=== PATIENT | male | born 1960 | race Caucasian/White ===

== ENCOUNTER 2018-05-28 06:24 | Inpatient (IN) ==
[2018-05-28] MEDS ORDERED: Aspirin 325 MG Tablet PO ONE (07:12)
[2018-05-28 07:32] LABS: Baso # (Auto) 0.3 th/mm3 (0.0-0.2); Baso % (Auto) 3.4 % (0.0-2.0); Eos # (Auto) 0.1 th/mm3 (0.0-0.4); Eos % (Auto) 1.9 % (0.0-4.0); Hematocrit 39.2 % (39.0-51.0); Hemoglobin 13.2 gm/dL (13.0-17.0); Lymph # (Auto) 1.6 th/mm3 (1.0-4.8); Lymph % (Auto) 20.9 % (9.0-44.0); Mean Corpuscular HGB Conc 33.8 % (32.0-36.0); Mean Corpuscular Hemoglobin 29.2 pg (27.0-34.0); Mean Corpuscular Volume 86.4 fL (80.0-100.0); Mean Platelet Volume 11.4 fL (7.0-11.0); Mono # (Auto) 0.9 th/mm3 (0.0-0.9); Mono % (Auto) 11.7 % (0.0-8.0); Neut # (Auto) 4.7 th/mm3 (1.8-7.7); Neut % (Auto) 62.1 % (16.0-70.0); Platelet Count 145 th/mm3 (150-450); Red Blood Count 4.54 mil/mm3 (4.50-5.90); Red Cell Distribution Width 12.6 % (11.6-17.2); White Blood Count 7.6 th/mm3 (4.0-11.0)
--- NOTE | 2018-05-28 07:33 | ED ---
HPI General Chief Complaint: Chest Pain Stated Complaint: Chest pain/HBP Time Seen by Provider: 05/28/18 07:05 Source: patient Mode of arrival: ambulatory Limitations: no limitations History of Present Illness HPI narrative: 57-year-old male presents with chest pain that is been intermittent for the past couple weeks but is gotten worse over the past week. He states he has not seen a physician in multiple years. He states he has not even checked his blood pressure multiple years because he has not had symptoms until recently. He states he has not had an aspirin yet today. He states that he smokes and he has family history of heart disease. He denies any heart history that he knows of for himself. He denies any other medical history. He denies any migration. He denies any modifying factors. Related Data Home Medications Medication Instructions Recorded Confirmed aspirin [Aspir-81] 81 mg PO DAILY 05/28/18 05/28/18 ibuprofen 600 mg PO TID PRN 05/28/18 05/28/18 Allergies Allergy/AdvReac Type Severity Reaction Status Date / Time No Known Allergies Allergy Verified 05/28/18 06:49 Review of Systems ROS: all other systems reviewed are negative PMFSH History History Provided By: Patient (Patient denies any medical history) Social History Social History Substance History: No History of Abuse Second Hand Smoke Exposure: Yes Smoking Status: Current every day smoker Tobacco Type: Cigarettes How Often Do You Have a Drink Containing Alcohol: Never Recent Travel in [facility] within the Last 8 Weeks: No Recent Out of Country Travel within the Last 8 Weeks: No Immunization History Tetanus Immunization: Unsure Exam Narrative Exam Narrative: GENERAL: 57-year-old male in no apparent distress SKIN: Focused skin assessment warm/dry. HEAD: Atraumatic. Normocephalic. EYES: Pupils equal and round. No scleral icterus. No injection or drainage. ENT: No nasal bleeding or discharge. Mucous membranes pink and moist. NECK: Trachea midline. No JVD. CARDIOVASCULAR: Regular rate and rhythm. No murmur appreciated. RESPIRATORY: No accessory muscle use. Clear to auscultation. Breath sounds equal bilaterally. GASTROINTESTINAL: Abdomen soft, non-tender, nondistended. MUSCULOSKELETAL: No obvious deformities. No clubbing. No cyanosis. No edema. NEUROLOGICAL: Awake and alert. No obvious cranial nerve deficits. Motor grossly within normal limits. Normal speech. PSYCHIATRIC: Appropriate mood and affect; insight and judgment normal. Course Reevaluation(s) Reevaluation #1: Patient's troponin came back with critical result of about 2. Patient updated. Patient already had aspirin and nitro and is feeling better. He agrees to admission and will discuss with cardiology. He states that he had a flight scheduled for Wednesday and I advised that he try to reschedule this given the above. He understands Consultations Consultation #1: dr fraga agrees to heparin and admit to [facility] Consultation #2: dr alexander agrees to admit Initial Documented Vital Signs Pulse Rate 87 05/28/18 06:30 Respiratory Rate 18 05/28/18 06:30 Blood Pressure 140/80 05/28/18 06:30 Pulse Oximetry 100 05/28/18 06:30 Last Documented Vital Signs Temperature 97.5 F L 05/28/18 07:12 Pulse Rate 88 05/28/18 07:12 Respiratory Rate 18 05/28/18 07:12 Blood Pressure 149/84 H 05/28/18 07:12 Pulse Oximetry 99 05/28/18 07:12 Medical Decision Making MDM Narrative Medical decision making narrative: We will check blood work, EKG, chest x-ray and dose with aspirin and nitro and reevaluate. Given risk factors he will need observation in the chest pain center. Medical Screen Exam Complete: Yes Emergency Medical Condition: Yes Differential Diagnosis Differential Diagnosis: Cardiac, pancreatitis, gastritis, musculoskeletal Lab Data Lab results reviewed: Yes I reviewed the patient's lab results. Result diagrams: 05/28/18 06:40 05/28/18 06:40 Lab Results 05/28/18 05/28/18 05/28/18 Range/Units 06:40 06:40 06:40 CBC w Diff Auto diff final WBC 7.6 (4.0-11.0) th/mm3 RBC 4.54 (4.50-5.90) mil/mm3 Hgb 13.2 (13.0-17.0) gm/dL Hct 39.2 (39.0-51.0) % MCV 86.4 (80.0-100.0) fL MCH 29.2 (27.0-34.0) pg MCHC 33.8 (32.0-36.0) % RDW 12.6 (11.6-17.2) % Plt Count 145 L (150-450) th/mm3 MPV 11.4 H (7.0-11.0) fL Neut % (Auto) 62.1 (16.0-70.0) % Lymph % (Auto) 20.9 (9.0-44.0) % Chambers % (Auto) 11.7 H (0.0-8.0) % Eos % (Auto) 1.9 (0.0-4.0) % Baso % (Auto) 3.4 H (0.0-2.0) % Neut # (Auto) 4.7 (1.8-7.7) th/mm3 Lymph # (Auto) 1.6 (1.0-4.8) th/mm3 Chambers # (Auto) 0.9 (0.0-0.9) th/mm3 Eos # (Auto) 0.1 (0.0-0.4) th/mm3 Baso # (Auto) 0.3 H (0.0-0.2) th/mm3 WBC Differential . Differential Comment . PT (9.8-11.6) sec INR Ratio APTT (23.4-31.7) sec Sodium 137 (136-145) meq/L Potassium 3.7 (3.5-5.1) meq/L Chloride 104 (98-107) meq/L Carbon Dioxide 25.4 (21.0-32.0) meq/L Anion Gap 8 (5-15) meq/L BUN 12 (7-18) mg/dL Creatinine 0.85 (0.60-1.30) mg/dL Estimated GFR Greater than 89 (>89) mL/min Random Glucose 120 H (74-106) mg/dL Calcium 8.4 L (8.5-10.1) mg/dL Magnesium (1.5-2.5) mg/dL Total Bilirubin 0.2 (0.2-1.0) mg/dL AST 26 (15-37) U/L ALT 28 (12-78) U/L Alkaline Phosphatase 93 (45-117) U/L Total Creatine Kinase 97 (39-308) U/L Troponin I 2.35 H* (0.02-0.05) ng/mL B-Natriuretic Peptide 140 H (0-100) pg/mL Total Protein 7.6 (6.4-8.2) g/dL Albumin 3.6 (3.4-5.0) g/dL Lipase 181 (73-393) U/L Serum Alcohol Less than 3 (0-5) mg/dL 05/28/18 05/28/18 Range/Units 06:40 06:40 CBC w Diff WBC (4.0-11.0) th/mm3 RBC (4.50-5.90) mil/mm3 Hgb (13.0-17.0) gm/dL Hct (39.0-51.0) % MCV (80.0-100.0) fL MCH (27.0-34.0) pg MCHC (32.0-36.0) % RDW (11.6-17.2) % Plt Count (150-450) th/mm3 MPV (7.0-11.0) fL Neut % (Auto) (16.0-70.0) % Lymph % (Auto) (9.0-44.0) % Chambers % (Auto) (0.0-8.0) % Eos % (Auto) (0.0-4.0) % Baso % (Auto) (0.0-2.0) % Neut # (Auto) (1.8-7.7) th/mm3 Lymph # (Auto) (1.0-4.8) th/mm3 Chambers # (Auto) (0.0-0.9) th/mm3 Eos # (Auto) (0.0-0.4) th/mm3 Baso # (Auto) (0.0-0.2) th/mm3 WBC Differential Differential Comment PT 10.2 (9.8-11.6) sec INR 1.0 Ratio APTT 30.1 (23.4-31.7) sec Sodium (136-145) meq/L Potassium (3.5-5.1) meq/L Chloride (98-107) meq/L Carbon Dioxide (21.0-32.0) meq/L Anion Gap (5-15) meq/L BUN (7-18) mg/dL Creatinine (0.60-1.30) mg/dL Estimated GFR (>89) mL/min Random Glucose (74-106) mg/dL Calcium (8.5-10.1) mg/dL Magnesium 1.9 (1.5-2.5) mg/dL Total Bilirubin (0.2-1.0) mg/dL AST (15-37) U/L ALT (12-78) U/L Alkaline Phosphatase (45-117) U/L Total Creatine Kinase (39-308) U/L Troponin I (0.02-0.05) ng/mL B-Natriuretic Peptide (0-100) pg/mL Total Protein (6.4-8.2) g/dL Albumin (3.4-5.0) g/dL Lipase (73-393) U/L Serum Alcohol (0-5) mg/dL Imaging Data Attestation: I personally reviewed and interpreted this imaging study as follows : Radiologist's impression: Chest X-Ray 05/28/18 07:12 CONCLUSION: No evidence of acute cardiopulmonary disease. Discharge Plan Discharge Disposition Patient Disposition: ED Admit(ED Internal Use Only) Discharge Order Discharge Orders: ED Use Only Admit Order (Routine); Ordered 05/28/18 Ordered By: Olivia Rowe Discharge Details Diagnosis: Non-ST elevation RI (NSTEMI) Physicians Team ED Provider: Olivia Rowe Primary Care Provider: Primary Care Larissai,Jo Ann Rxs /Orders / Referrals /Forms Prescriptions: No Action ibuprofen 600 mg Tablet 600 mg PO TID PRN (Reason: Pain (Scale Score 4-6)) RF: 0 aspirin [Aspir-81] 81 mg Tablet,Delayed Release (Dr/Ec) 81 mg PO DAILY RF: 0 Discharge Instructions Patient Printed Instructions: Chest Pain (ED) Status ED Status: Admitted Patient
[2018-05-28 07:34] LABS: Chloride 104 meq/L (98-107); Potassium 3.7 meq/L (3.5-5.1); Sodium 137 meq/L (136-145)
--- NOTE | 2018-05-28 07:34 | XR ---
EXAM DATE: 05/28/2018 7:25 AM EST AGE/SEX: 57 years / Male INDICATIONS: Chest pain off and on for 1 week CLINICAL DATA: This is the patient's initial encounter. Patient reports that signs and symptoms have been present for 1 week and indicates a pain score of 9/10. MEDICAL/SURGICAL HISTORY: None. None. COMPARISON: No prior exams available for comparison. FINDINGS: A single AP view of the chest demonstrates the lungs to be symmetrically aerated without evidence of mass, infiltrate or effusion. The cardiomediastinal contours are unremarkable. Osseous structures a re intact. CONCLUSION: No evidence of acute cardiopulmonary disease. Electronically signed by: Kush Porter MD Board Certified Radiologist 05/28/2018 7:33 AM EST
[2018-05-28 07:37] LABS: Calcium 8.4 mg/dL (8.5-10.1)
[2018-05-28 07:38] LABS: Albumin 3.6 g/dL (3.4-5.0); Anion Gap 8 meq/L (5-15); Blood Urea Nitrogen 12 mg/dL (7-18); Carbon Dioxide 25.4 meq/L (21.0-32.0); Glucose,Random 120 mg/dL (74-106); Lipase 181 U/L (73-393)
[2018-05-28 07:40] LABS: Alanine Aminotransferase 28 U/L (12-78); Aspartate Aminotransferase 26 U/L (15-37)
[2018-05-28 07:41] LABS: Activated Partial Thrombo Time 30.1 sec (23.4-31.7); Glomerular Filtration Rate Greater Than 89 mL/min (>89); Prothrombin Time 10.2 sec (9.8-11.6)
[2018-05-28 07:42] LABS: Total Protein 7.6 g/dL (6.4-8.2)
[2018-05-28 07:43] LABS: Alkaline Phosphatase 93 U/L (45-117)
[2018-05-28 07:48] LABS: Creatine Kinase 97 U/L (39-308)
[2018-05-28 07:50] LABS: Troponin I 2.35 ng/mL (0.02-0.05)
[2018-05-28] MEDS ORDERED: Heparin 10,000 UNITS/10 ML Vial (for IV use) IV.PUSH STA (08:26)
[2018-05-28] MEDS ORDERED: Acetaminophen 325 MG Tablet PO PRN (08:41)
[2018-05-28] MEDS ORDERED: Morphine Inj 4 MG/ML Vial IV.PUSH PRN (08:45)
[2018-05-28] MEDS: Sod Chloride 0.9% Inj 1,000 ML IV.CONT SCH ×2 (09:20→22:01)
--- NOTE | 2018-05-28 09:20 | P.CONCA ---
History of Present Illness Primary Care Provider: No Primary Care Physician History of Present Illness: 57-year-old [place] male smoker who denies any past medical history. The patient presented for chest pain. He had chest pain today lasting for several minutes that occurred at rest and came to the ED for evaluation. He is chest pain-free at this time. He states he last had chest discomfort about a week ago. Initial EKG shows NSR with inferolateral T wave changes. Initial troponin 2.35. Patient reports a sister that had heart catheterization and intervention at age 58. The patient is agreeable to proceed with left heart catheterization , but is apprehensive about staying in the hospital until Wednesday because he has of a to [place]. The patient is agreeable to proceed with medical therapy with heparin gtt. at this time. Review of Systems All other systems reviewed negative except as stated [facility] - History History Provided By: Patient (Patient denies any medical history) - Tobacco History Second Hand Smoke Exposure: Yes Tobacco Use In Past 30 Days: Yes Smoking Status: Current every day smoker Tobacco Type: Cigarettes - Alcohol History How Often Do You Have a Drink Containing Alcohol: Never - Substance Use History Substance History: No History of Abuse - Travel History Recent Travel in the [place] Within the Last 8 Weeks: No Recent Travel Out of the Country Within the Last 8 Weeks: No - Immunization History Tetanus Immunization: Unsure Medications and Allergies Active Medications: Active Medications Acetaminophen (Tylenol) 650 mg PO Q4H PRN PRN Reason: Temp > 100.4 Al Hydroxide/Mg Hydroxide (Milk Of Ann Liq) 30 ml PO Q12H PRN PRN Reason: Mild Constipation Aspirin (Aspirin) 325 mg PO DAILY [facility] Heparin Sodium/Dextrose (Heparin/D5w 25,000 U/250 Ml) 25,000 unit in 250 mls @ 0 mls/hr IV.CONT TITRATE PRN; Protocol PRN Reason: Per Protocol Sodium Chloride (Ns Inj) 1,000 mls @ 75 mls/hr IV.CONT .[id number] [facility] Morphine Sulfate (Morphine Inj) 4 mg IV.PUSH Q4H PRN PRN Reason: Pain 7 to 10 Morphine Sulfate (Morphine Inj) 2 mg IV.PUSH Q4H PRN PRN Reason: Pain 3 to 6 Nitroglycerin (Nitrostat Sl) 0.4 mg SL Q5M PRN PRN Reason: CHEST PAIN Ondansetron HCl (Zofran Inj) 4 mg IV.PUSH Q6H PRN PRN Reason: NAUSEA OR VOMITING Sodium Chloride (Ns Flush) 2 ml IV.FLUSH UNSCH PRN PRN Reason: FLUSH AFTER USING IV ACCESS Last Admin: 05/28/18 07:26 Dose: 2 ml Sodium Chloride (Ns Flush) 2 ml IV.FLUSH BID REVA Sodium Chloride (Ns Flush) 2 ml IV.FLUSH PRN PRN PRN Reason: FLUSH AFTER USING IV ACCESS Allergies Allergy/AdvReac Type Severity Reaction Status Date / Time No Known Allergies Allergy Verified 05/28/18 06:49 Home Medications Medication Instructions Recorded Confirmed Type aspirin [Aspir-81] 81 mg PO DAILY 05/28/18 05/28/18 History ibuprofen 600 mg PO TID PRN 05/28/18 05/28/18 History Exam Vital signs: Vital Signs 05/28/18 06:30 05/28/18 06:32 05/28/18 06:35 Temperature Pulse Rate 87 88 82 Respiratory Rate 18 18 16 Blood Pressure 140/80 149/88 H Pulse Oximetry 100 100 100 05/28/18 07:12 Temperature 97.5 F L Pulse Rate 88 Respiratory Rate 18 Blood Pressure 149/84 H Pulse Oximetry 99 Intake & Output 05/27/18 05/28/18 05/28/18 18:59 06:59 18:59 Weight 160 lb 0.889 oz Narrative: GENERAL: Well-developed well-nourished. In no acute distress. NECK: No carotid bruits. No JVD. CARDIOVASCULAR: Regular rate and rhythm. No murmur appreciated. RESPIRATORY: No accessory muscle use. Clear to auscultation. Breath sounds equal bilaterally. MUSCULOSKELETAL: No clubbing or cyanosis. No edema. NEUROLOGICAL: Awake and alert. Normal speech. Results 05/28/18 06:40 05/28/18 06:40 Cardiac Enzymes 05/28/18 05/28/18 Range/Units 06:40 06:40 AST 26 (15-37) U/L Troponin I 2.35 H* (0.02-0.05) ng/mL B-Natriuretic Peptide 140 H (0-100) pg/mL Coagulation 05/28/18 05/28/18 Range/Units 06:40 06:40 PT 10.2 (9.8-11.6) sec APTT 30.1 (23.4-31.7) sec B-Natriuretic Peptide 140 H (0-100) pg/mL CBC 05/28/18 Range/Units 06:40 WBC 7.6 (4.0-11.0) th/mm3 RBC 4.54 (4.50-5.90) mil/mm3 Hgb 13.2 (13.0-17.0) gm/dL Hct 39.2 (39.0-51.0) % Plt Count 145 L (150-450) th/mm3 Neut # (Auto) 4.7 (1.8-7.7) th/mm3 Lymph # (Auto) 1.6 (1.0-4.8) th/mm3 [place] # (Auto) 0.9 (0.0-0.9) th/mm3 Eos # (Auto) 0.1 (0.0-0.4) th/mm3 Baso # (Auto) 0.3 H (0.0-0.2) th/mm3 Comprehensive Metabolic Panel 05/28/18 Range/Units 06:40 Sodium 137 (136-145) meq/L Potassium 3.7 (3.5-5.1) meq/L Chloride 104 (98-107) meq/L Carbon Dioxide 25.4 (21.0-32.0) meq/L BUN 12 (7-18) mg/dL Creatinine 0.85 (0.60-1.30) mg/dL Calcium 8.4 L (8.5-10.1) mg/dL AST 26 (15-37) U/L ALT 28 (12-78) U/L Alkaline Phosphatase 93 (45-117) U/L Total Protein 7.6 (6.4-8.2) g/dL Albumin 3.6 (3.4-5.0) g/dL Intake and Output 05/27/18 05/28/18 05/28/18 22:59 06:59 14:59 Other: Weight 160 lb 0.889 oz - Imaging and Cardiology Imaging: Impressions Chest X-Ray 05/28/18 07:12 CONCLUSION: No evidence of acute cardiopulmonary disease. Assessment and Plan - Plan 57-year-old [place] male smoker who denies any past medical history, who presented for chest pain. NSTEMI: Discussed risk/benefits/alternatives of treatment, pain patient agreeable to proceed at this time with left heart catheterization on Wednesday, n.p.o. after midnight Wednesday. Continue heparin gtt. Change aspirin 81 mg daily. Start metoprolol 25 mg twice daily. Check lipid profile and likely start statin. Strongly encouraged tobacco cessation. If patient were to decide to leave AGAINST MEDICAL ADVICE (even though this was strongly recommended against) would recommend prescription for long-acting nitrate. Discussed Condition With: Patient with family at bedside, Dr. Rowe, Dr. Gillis, Dr. Coreas
[2018-05-28] MEDS: Heparin Drip 25,000 UNIT/250 ML BAG IV.CONT PRN (09:22)
--- NOTE | 2018-05-28 11:20 | ECG ---
Date Performed: 05/28/2018 Time Performed: 07:01:16 PTAGE: 57 years EKG: Sinus rhythm WITH SHORT [place] INTERVAL ST DEVIATION AND MODERATE T-WAVE ABNORMALITY, CONSIDER LATERAL ISCHEMIA ST DE VIATION AND MODERATE T-WAVE ABNORMALITY, CONSIDER INFERIOR ISCHEMIA ABNORMAL ECG NO PREVIOUS TRACING DOCTOR: Frederick Coreas Interpretating Date/Time 05/28/2018 11:18:50
--- NOTE | 2018-05-28 11:24 | P.HPIM ---
History of Present Illness Primary Care Physician: No Primary Care Physician Chief Complaint: Chest Pain History of Present Illness: Mr. Kolb is a 57 year old male. He has no past medical history and has not seen any medical provider for years. He came into the emergency department complaining of a tight pressure-like chest pain which sometimes rated up to his shoulders and back. He reports that he still having intermittent mild episodes of this in the preceding today he has had some of these episodes previously. What prompted him to come in was that last night he had a severe episode like this which is beyond his normal baseline. The severity of that episode has subsided. Troponins are showing positivity on first lab draw. ST segment changes are present. However, symptoms have improved. He is a smoker and has been trying to cut back smoking for the last week. He has a history of coronary artery disease in his father and sister. No other complaints at this time. Inpatient Certification Inpatient Certification: I certify that the inpatient services were ordered in accordance with Medicare regulations governing the order. This includes certification that hospital inpatient services are reasonable and necessary and in the case of services not specified as inpatient-only under 42 CFR 419.22(n), that they are appropriately provided as inpatient services in accordance to with the 2-midnight benchmark under 43 CFR 412.3(e) Estimated Total Length of Stay (Days): 3 Plans for Post Hospital Care: Home Review of Systems Constitutional: No fevers, no chills no night sweats, no fatigue, no weakness Eyes: No eye pain, no blurry vision, no loss of vision ENT: No sore throat, no ear pain, no rhinorrhea Cardiovascular: chest pain, no tachycardia, no palpitations, no syncope Respiratory: No wheezing, no cough, no shortness of breath Gastrointestinal: No abdominal pain, no black tarry stools, no bright red blood per rectum, no vomiting, no diarrhea Musculoskeletal: No joint pain, no muscle cramps, no stiffness Integumentary: No rash, no ulcers, no drainage Neurologic: No sensory loss, no loss of motor function, no dizziness Psychiatric: No behavioral changes, no hallucinations, no suicidal ideations [facility] Family History Family History Father Coronary artery disease Sister Coronary artery disease Social History Social History Substance History: No History of Abuse Second Hand Smoke Exposure: Yes Smoking Status: Current every day smoker Tobacco Type: Cigarettes How Often Do You Have a Drink Containing Alcohol: Never Recent Travel in [facility] within the Last 8 Weeks: No Recent Out of Country Travel within the Last 8 Weeks: No Immunization History Tetanus Immunization: Unsure Medications and Allergies Allergies Allergy/AdvReac Type Severity Reaction Status Date / Time No Known Allergies Allergy Verified 05/28/18 06:49 Home Medications Medication Instructions Recorded Confirmed Type aspirin [Aspir-81] 81 mg PO DAILY 05/28/18 05/28/18 History ibuprofen 600 mg PO TID PRN 05/28/18 05/28/18 History Active Medications: Active Medications Acetaminophen (Tylenol) 650 mg PO Q4H PRN PRN Reason: Temp > 100.4 Al Hydroxide/Mg Hydroxide (Milk Of Ann Liq) 30 ml PO Q12H PRN PRN Reason: Mild Constipation Aspirin (Aspirin Chew) 81 mg PO DAILY [facility] Heparin Sodium/Dextrose (Heparin/D5w 25,000 U/250 Ml) 25,000 unit in 250 mls @ 0 mls/hr IV.CONT TITRATE PRN; Protocol PRN Reason: Per Protocol Last Admin: 05/28/18 09:22 Dose: 9 units/hr, 0.09 mls/hr Sodium Chloride (Ns Inj) 1,000 mls @ 75 mls/hr IV.CONT .[id number] [facility] Last Admin: 05/28/18 09:20 Dose: 75 mls/hr Metoprolol Tartrate (Lopressor) 25 mg PO BID [facility] Morphine Sulfate (Morphine Inj) 4 mg IV.PUSH Q4H PRN PRN Reason: Pain 7 to 10 Morphine Sulfate (Morphine Inj) 2 mg IV.PUSH Q4H PRN PRN Reason: Pain 3 to 6 Nitroglycerin (Nitrostat Sl) 0.4 mg SL Q5M PRN PRN Reason: CHEST PAIN Ondansetron HCl (Zofran Inj) 4 mg IV.PUSH Q6H PRN PRN Reason: NAUSEA OR VOMITING Sodium Chloride (Ns Flush) 2 ml IV.FLUSH UNSCH PRN PRN Reason: FLUSH AFTER USING IV ACCESS Last Admin: 05/28/18 07:26 Dose: 2 ml Sodium Chloride (Ns Flush) 2 ml IV.FLUSH BID [facility] Last Admin: 05/28/18 09:21 Dose: 2 ml Sodium Chloride (Ns Flush) 2 ml IV.FLUSH PRN PRN PRN Reason: FLUSH AFTER USING IV ACCESS Physical Exam Vital signs: Vital Signs 05/28/18 06:30 05/28/18 06:32 05/28/18 06:35 Temperature Pulse Rate 87 88 82 Respiratory Rate 18 18 16 Blood Pressure 140/80 149/88 H Pulse Oximetry 100 100 100 05/28/18 07:12 05/28/18 08:42 Temperature 97.5 F L Pulse Rate 88 86 Respiratory Rate 18 18 Blood Pressure 149/84 H 115/70 Pulse Oximetry 99 99 Intake & Output 05/27/18 05/28/18 05/28/18 18:59 06:59 18:59 Weight 72.6 kg Other: # Voids 1 Narrative: GENERAL: NAD, A&Ox3 HEAD: Normocephalic. NECK: Supple, trachea midline. No lymphadenopathy. EYES: No scleral icterus. No injection or drainage. CARDIOVASCULAR: Regular rate and rhythm without murmurs, gallops, or rubs. RESPIRATORY: Breath sounds equal bilaterally. No accessory muscle use. GASTROINTESTINAL: Abdomen soft, non-tender, nondistended. MUSCULOSKELETAL: No cyanosis, or edema. SKIN: Warm and dry. NEURO: No focal neurological deficits. Results Labs CBC & Chem 7: 05/28/18 06:40 05/28/18 06:40 Imaging Impressions Chest X-Ray 05/28/18 07:12 CONCLUSION: No evidence of acute cardiopulmonary disease. Caprini VTE Risk Assessment Caprini VTE Risk Assessment: No/Low Risk (score <= 1) Caprini Risk Assessment Model: Point Value = 1 Point Value = 2 Point Value = 3 Point Value = 5 Age 41-60 Minor surgery BMI > 25 kg/m2 Swollen legs Varicose veins or History of unexplained or recurrent spontaneous Oral contraceptives or hormone replacement Sepsis (< 1 month) Serious lung disease, including pneumonia (< 1 month) Abnormal pulmonary function Acute myocardial infarction Congestive heart failure (< 1 month) History of inflammatory bowel disease Medical patient at bed rest Age 61-74 Arthroscopic surgery Major open surgery (> 45 min) Laparoscopic surgery (> 45 min) Malignancy Confined to bed (> 72 hours) Immobilizing plaster cast Central venous access Age >= 75 History of VTE Family history of VTE Factor V Leiden Prothrombin [id number] Lupus anticoagulant Anticardiolipin antibodies Elevated serum homocysteine Heparin-induced thrombocytopenia Other congenital or acquired thrombophilia Stroke (< 1 month) Elective arthroplasty Hip, pelvis, or leg fracture Acute spinal cord injury (< 1 month) Prophylaxis Regimen: Total Risk Factor Score Risk Level Prophylaxis Regimen 0-1 Low Early ambulation 2 Moderate Order ONE of the following: *Sequential Compression Device (SCD) *Heparin 5000 units SQ BID 3-4 Higher Order ONE of the following medications: *Heparin 5000 units SQ TID *Enoxaparin/Lovenox 40 mg SQ daily (WT < 150 kg, CrCl > 30 mL/min) *Enoxaparin/Lovenox 30 mg SQ daily (WT < 150 kg, CrCl > 10-29 mL/min) *Enoxaparin/Lovenox 30 mg SQ BID (WT < 150 kg, CrCl > 30 mL/min) AND/OR *Sequential Compression Device (SCD) 5 or more Highest Order ONE of the following medications: *Heparin 5000 units SQ TID (Preferred with Epidurals) *Enoxaparin/Lovenox 40 mg SQ daily (WT < 150 kg, CrCl > 30 mL/min) *Enoxaparin/Lovenox 30 mg SQ daily (WT < 150 kg, CrCl > 10-29 mL/min) *Enoxaparin/Lovenox 30 mg SQ BID (WT < 150 kg, CrCl > 30 mL/min) AND *Sequential Compression Device (SCD) Assessment and Plan Plan 57-year-old male admitted secondary to STEMI STEMI Follow cardiac enzymes Aspirin daily When necessary oxygen When necessary morphine for pain. When necessary nitroglycerin Follow on telemetry Cardiology consulted Heparin drip Admit to [facility] Main Nicotine dependence Not currently a candidate for NicoDerm Patient counseled to quit DVT prophylaxis Heparin
[2018-05-28 12:45] LABS: Troponin I 13.4 ng/mL (0.02-0.05)
--- NOTE | 2018-05-28 13:22 | ECHRPT ---
Indication: CHEST PAIN CONCLUSIONS Normal left ventricular size. Wall thickness is normal. The left ventricular systolic function is moderately reduced with an estimated ejection fraction in the range of 40-45%. Mild mitral valve regurgitation. There is trace tricuspid valve regurgitation. The estimated pulmonary arterial pressure is 36mmHg. There is regional distal anteroseptal, apical, anterior, and anterolateral mild hypokinesis. BP: / HR: Rhythm: Sinus MEASUREMENTS (Male / Female) Normal Values Technical Quality:Fair 2D ECHO LV Diastolic Diameter PLAX 4.5 cm 4.2 - 5.9 / 3.9 - 5.3 cm LV Systolic Diameter PLAX 3.5 cm IVS Diastolic Thickness 0.9 cm 0.6 - 1.0 / 0.6 - 0.9 cm LVPW Diastolic Thickness 1.0 cm 0.6 - 1.0 / 0.6 - 0.9 cm LV Relative Wall Thickness 0.4 RV Internal Dim ED PLAX 2.9 cm LVOT Diameter 1.7 cm Aortic Root Diameter 2.9 cm LA Systolic Diameter LX 2.9 cm 3.0 - 4.0 / 2.7 - 3.8 cm DOPPLER AV Peak Velocity 147.5 cm/s AV Peak Gradient 8.7 mmHg LVOT Peak Velocity 114.5 cm/s LVOT Peak Gradient 5.2 mmHg AV Area Cont Eq pk 1.8 cm Mitral E Point Velocity 78.0 cm/s Mitral A Point Velocity 80.0 cm/s Mitral E to A Ratio 1.0 LV E' Lateral Velocity 8.6 cm/s Mitral E to LV E' Lateral Ratio 9.1 LV E' Septal Velocity 9.7 cm/s Mitral E to LV E' Septal Ratio 8.1 TR Peak Velocity 257.0 cm/s TR Peak Gradient 26.4 mmHg Right Atrial Pressure 10.0 mmHg Pulmonary Artery Systolic Pressu 36.4 mmHg Right Ventricular Systolic Press 36.4 mmHg PV Peak Velocity 119.0 cm/s PV Peak Gradient 5.7 mmHg FINDINGS LEFT VENTRICLE Normal left ventricular size. Wall thickness is normal. The left ventricular systolic function is moderately reduced with an estimated ejection fraction in the range of 40-45%. There is regional distal anteroseptal, apical, anterior, and anterolateral mild hypokinesis RIGHT VENTRICLE Normal right ventricular size and systolic function. LEFT ATRIUM The left atrial size is normal. RIGHT ATRIUM The right atrial size is normal. ATRIAL SEPTUM Normal atrial septal thickness without atrial level shunting by limited color doppler interrogation. AORTA The aortic root and proximal ascending aorta are normal in size on limited imaging. MITRAL VALVE Mild mitral valve regurgitation. AORTIC VALVE Trileaflet aortic valve. No aortic valve stenosis or regurgitation. TRICUSPID VALVE There is trace tricuspid valve regurgitation. The estimated pulmonary arterial pressure is 36mmHg. PULMONARY VALVE No pulmonary valve regurgitation or stenosis. VESSELS The inferior vena cava is normal in size. PERICARDIUM No pericardial effusion. Frederick Coreas MD, FACC (Electronically Signed) Final Date:28 May 2018 13:21
[2018-05-28 14:00] LABS: Chol/HDL Ratio 4.57 Ratio; HDL Cholesterol 32.8 mg/dL (40.0-60.0)
--- NOTE | 2018-05-28 17:46 | ECG ---
Date Performed: 05/28/2018 Time Performed: 12:30:26 PTAGE: 57 years EKG: Sinus rhythm ST DEVIATION AND MODERATE T-WAVE ABNORMALITY, CONSIDER INFERIOR ISCHEMIA ABNORMAL ECG INTERPRETATION BASED ON A DEFAULT AGE OF 40 YEARS PREVIOUS TRACING : 05/28/2018 07.01 DOCTOR: Frederick Coreas Interpretating Date/Time 05/28/2018 17:45:18
[2018-05-28] MEDS ORDERED: Nitroglycerin Drip Premix 50 MG/250 ML BOTTLE IV.CONT PRN (18:50)
[2018-05-28 21:01] LABS: Creatine Kinase MB 47.2 ng/mL (0.5-3.6)
[2018-05-28 21:30] LABS: CKMB Percent 14.2 % (0.0-4.0)
[2018-05-29 00:01] LABS: Troponin I 14.5 ng/mL (0.02-0.05)
[2018-05-29] MEDS: Metoprolol Tartrate 25 MG Tablet PO SCH ×3 (01:05→20:46)
[2018-05-29 04:51] LABS: Baso % (Auto) 0.5 % (0.0-2.0); Eos % (Auto) 0.4 % (0.0-4.0); Hematocrit 34.6 % (39.0-51.0); Hemoglobin 11.9 gm/dL (13.0-17.0); Lymph # (Auto) 1.8 th/mm3 (1.0-4.8); Lymph % (Auto) 19.6 % (9.0-44.0); Mean Corpuscular HGB Conc 34.3 % (32.0-36.0); Mean Corpuscular Volume 87.5 fL (80.0-100.0); Mono % (Auto) 11.2 % (0.0-8.0); Neut # (Auto) 6.4 th/mm3 (1.8-7.7); Neut % (Auto) 68.3 % (16.0-70.0); Platelet Count 143 th/mm3 (150-450); Red Blood Count 3.95 mil/mm3 (4.50-5.90); Red Cell Distribution Width 13.2 % (11.6-17.2); White Blood Count 9.3 th/mm3 (4.0-11.0)
[2018-05-29] MEDS: Sod Chloride 0.9% Inj 1,000 ML IV.CONT SCH ×2 (04:54→19:29)
[2018-05-29 05:14] LABS: Albumin 3.2 g/dL (3.4-5.0); Anion Gap 8 meq/L (5-15); Aspartate Aminotransferase 58 U/L (15-37); Blood Urea Nitrogen 9 mg/dL (7-18); Calcium 8.3 mg/dL (8.5-10.1); Carbon Dioxide 24.8 meq/L (21.0-32.0); Chloride 105 meq/L (98-107); Glomerular Filtration Rate Greater Than 89 mL/min (>89); Glucose,Random 108 mg/dL (74-106); Potassium 3.8 meq/L (3.5-5.1); Sodium 138 meq/L (136-145)
[2018-05-29 05:15] LABS: Alanine Aminotransferase 34 U/L (12-78)
[2018-05-29 05:18] LABS: Alkaline Phosphatase 75 U/L (45-117); Total Protein 6.8 g/dL (6.4-8.2)
[2018-05-29] MEDS: Heparin Drip 25,000 UNIT/250 ML BAG IV.CONT PRN (08:08)
[2018-05-29] MEDS ORDERED: Aspirin 325 MG Tablet PO SCH (09:00)
--- NOTE | 2018-05-29 09:21 | P.PNIM ---
Subjective Interval history: Patient seen and evaluated on follow-up for acute coronary syndrome At this time patient is denying chest pain, shortness of breath, palpitation, dizziness, nausea, vomiting, or diaphoresis. Patient is currently on heparin drip and tolerating well Patient is currently on nitroglycerin drip and denies headache and blood pressure has been controlled currently 128/64 Patient understands that catheterization would be his best option and is prepared for the study. Patient understands that he will need to be n.p.o. at midnight patient reports that he has still been smoking Physical Exam Vital signs: Vital Signs 05/28/18 11:30 05/28/18 12:44 05/28/18 15:00 Temperature Pulse Rate 86 68 89 Respiratory Rate 18 18 Blood Pressure 115/73 112/68 Pulse Oximetry 99 99 05/28/18 15:47 05/28/18 16:00 05/28/18 17:00 Temperature 96.8 F L Pulse Rate 93 H 84 85 Respiratory Rate 20 Blood Pressure 134/83 Pulse Oximetry 100 05/28/18 18:00 05/28/18 19:00 05/28/18 20:00 Temperature 98.1 F Pulse Rate 87 100 H 102 H Respiratory Rate 18 Blood Pressure 140/78 Pulse Oximetry 100 05/28/18 21:00 05/28/18 22:00 05/28/18 23:00 Temperature Pulse Rate 94 H 94 H 91 H Respiratory Rate Blood Pressure Pulse Oximetry 05/29/18 00:00 05/29/18 01:00 05/29/18 02:00 Temperature 99.6 F Pulse Rate 96 H 106 H 94 H Respiratory Rate 20 Blood Pressure 119/66 Pulse Oximetry 99 05/29/18 02:35 05/29/18 04:00 05/29/18 05:00 Temperature 99.5 F Pulse Rate 93 H 98 H 98 H Respiratory Rate 20 Blood Pressure 128/64 Pulse Oximetry 98 05/29/18 06:00 Temperature Pulse Rate 82 Respiratory Rate Blood Pressure Pulse Oximetry Intake & Output 05/28/18 05/29/18 05/29/18 18:59 06:59 18:59 Intake Total 480 / 480 1630 / 1630 250 / 250 Output Total 350 / 350 Balance 130 / 130 1630 / 1630 250 / 250 Weight 72 kg Intake: IV 1000 / 1000 250 / 250 Heparin/D5W 25,000 U/250 mL 25, 250 / 250 000 unit In 250 ml @ Per Protocol IV.CONT TITRATE PRN Rx #:[id number] NS Inj 1,000 ML @ 75 mls/hr IV. 1000 / 1000 CONT .[id number] REVA Rx#: [id number] Oral 480 / 480 630 / 630 Output: Urine 350 / 350 Other: # Voids 1 3 Date of Last Bowel Movement 05/26/18 05/26/18 # Bowel Movements 0 General: No acute distress, conversational Cardiovascular: S1/S2, no murmur, rub, or gallop Respiratory: Clear to auscultation bilaterally Gastroenterology: Soft, nontender Extremity: No lower extremity edema, no calf tenderness, 2+ dorsalis pedis pulse bilaterally Results Labs CBC & Chem 7: 05/29/18 04:00 05/29/18 04:00 Assessment and Plan Plan Patient is a very pleasant 57-year-old gentleman with no significant past medical cardiac history who presents with new onset chest pain found to have T wave inversions in the inferior leads with elevated troponin levels admitted for NSTEMI Cardiology: Non-ST elevation myocardial infarction Cardiology consulted and recommendations appreciated Continue heparin drip nitroglycerin to be titrated Continue beta-christina, aspirin, and statin therapy Oxygen supplemental as needed for shortness of breath Continue telemetry monitoring. No acute events noted overnight EKG PRN for chest pain N.p.o. at midnight tonight Psychiatry: Smoking Approximately 15 minutes was spent counseling the patient is cessation techniques. Understands continuing to smoke could lead to stroke and , worsening of cardiac status. Benefits of stopping also presented to the patient. Patient verbalized desire to quit once discharged from hospital CODE STATUS: Full code DVT prophylaxis: Heparin drip Diet: N.p.o. at midnight
--- NOTE | 2018-05-29 09:59 | P.PNCA ---
Subjective Interval history: Patient reports no further chest pain or shortness of breath. Medications and Allergies Active Medications: Active Medications Acetaminophen (Tylenol) 650 mg PO Q4H PRN PRN Reason: Temp > 100.4 Al Hydroxide/Mg Hydroxide (Milk Of Magnesia Liq) 30 ml PO Q12H PRN PRN Reason: Mild Constipation Aspirin (Aspirin Chew) 81 mg PO DAILY [facility] Last Admin: 05/29/18 08:09 Dose: 81 mg Atorvastatin Calcium (Lipitor) 40 mg PO DAILY@2000 [facility] Heparin Sodium/Dextrose (Heparin/D5w 25,000 U/250 Ml) 25,000 unit in 250 mls @ 0 mls/hr IV.CONT TITRATE PRN; Protocol PRN Reason: Per Protocol Last Admin: 05/29/18 08:08 Dose: 9 units/hr, 0.09 mls/hr Sodium Chloride (Ns Inj) 1,000 mls @ 75 mls/hr IV.CONT .[id number] [facility] Last Admin: 05/29/18 04:54 Dose: 75 mls/hr Nitroglycerin/Dextrose (Nitroglycerin Drip Premix) 50 mg in 250 mls @ 1.5 mls/ hr IV.CONT TITRATE PRN; Protocol PRN Reason: Per Protocol Last Admin: 05/28/18 19:31 Dose: 5 mcg/min, 1.5 mls/hr Metoprolol Tartrate (Lopressor) 25 mg PO BID [facility] Last Admin: 05/29/18 08:09 Dose: 25 mg Morphine Sulfate (Morphine Inj) 4 mg IV.PUSH Q4H PRN PRN Reason: Pain 7 to 10 Morphine Sulfate (Morphine Inj) 2 mg IV.PUSH Q4H PRN PRN Reason: Pain 3 to 6 Nitroglycerin (Nitrostat Sl) 0.4 mg SL Q5M PRN PRN Reason: CHEST PAIN Ondansetron HCl (Zofran Inj) 4 mg IV.PUSH Q6H PRN PRN Reason: NAUSEA OR VOMITING Sodium Chloride (Ns Flush) 2 ml IV.FLUSH BID [facility] Last Admin: 05/29/18 08:11 Dose: 2 ml Sodium Chloride (Ns Flush) 2 ml IV.FLUSH PRN PRN PRN Reason: FLUSH AFTER USING IV ACCESS Allergies Allergy/AdvReac Type Severity Reaction Status Date / Time No Known Allergies Allergy Verified 05/28/18 06:49 Home Medications Medication Instructions Recorded Confirmed Type aspirin [Aspir-81] 81 mg PO DAILY 05/28/18 05/28/18 History ibuprofen 600 mg PO TID PRN 05/28/18 05/28/18 History Physical Exam Vital signs: Vital Signs 05/28/18 11:30 05/28/18 12:44 05/28/18 15:00 Temperature Pulse Rate 86 68 89 Respiratory Rate 18 18 Blood Pressure 115/73 112/68 Pulse Oximetry 99 99 05/28/18 15:47 05/28/18 16:00 05/28/18 17:00 Temperature 96.8 F L Pulse Rate 93 H 84 85 Respiratory Rate 20 Blood Pressure 134/83 Pulse Oximetry 100 05/28/18 18:00 05/28/18 19:00 05/28/18 20:00 Temperature 98.1 F Pulse Rate 87 100 H 102 H Respiratory Rate 18 Blood Pressure 140/78 Pulse Oximetry 100 05/28/18 21:00 05/28/18 22:00 05/28/18 23:00 Temperature Pulse Rate 94 H 94 H 91 H Respiratory Rate Blood Pressure Pulse Oximetry 05/29/18 00:00 05/29/18 01:00 05/29/18 02:00 Temperature 99.6 F Pulse Rate 96 H 106 H 94 H Respiratory Rate 20 Blood Pressure 119/66 Pulse Oximetry 99 05/29/18 02:35 05/29/18 04:00 05/29/18 05:00 Temperature 99.5 F Pulse Rate 93 H 98 H 98 H Respiratory Rate 20 Blood Pressure 128/64 Pulse Oximetry 98 05/29/18 06:00 05/29/18 07:00 05/29/18 08:00 Temperature 98.6 F Pulse Rate 82 93 H 100 H Respiratory Rate 20 Blood Pressure 117/61 Pulse Oximetry 95 Intake & Output 05/28/18 05/29/18 05/29/18 18:59 06:59 18:59 Intake Total 480 / 480 1630 / 1630 250 / 250 Output Total 350 / 350 Balance 130 / 130 1630 / 1630 250 / 250 Weight 158 lb 11.725 oz Intake: IV 1000 / 1000 250 / 250 Heparin/D5W 25,000 U/250 mL 25, 250 / 250 000 unit In 250 ml @ Per Protocol IV.CONT TITRATE PRN Rx #:[id number] NS Inj 1,000 ML @ 75 mls/hr IV. 1000 / 1000 CONT .[id number] REVA Rx#: [id number] Oral 480 / 480 630 / 630 Output: Urine 350 / 350 Other: # Voids 1 3 Date of Last Bowel Movement 05/26/18 05/26/18 05/28/18 # Bowel Movements 0 Narrative: GENERAL: Well-developed well-nourished. In no acute distress. NECK: No carotid bruits. No JVD. CARDIOVASCULAR: Regular rate and rhythm. No murmur appreciated. RESPIRATORY: No accessory muscle use. Clear to auscultation. Breath sounds equal bilaterally. MUSCULOSKELETAL: No clubbing or cyanosis. No edema. NEUROLOGICAL: Awake and alert. Normal speech. Results 05/29/18 04:00 05/29/18 04:00 Cardiac Enzymes 05/28/18 05/28/18 05/28/18 Range/Units 06:40 06:40 11:55 AST 26 (15-37) U/L CK-MB (CK-2) 56.0 H (0.5-3.6) ng/mL Troponin I 2.35 H* 13.40 H* (0.02-0.05) ng/mL B-Natriuretic Peptide 140 H (0-100) pg/mL 05/28/18 05/29/18 Range/Units 19:36 04:00 AST 58 H (15-37) U/L CK-MB (CK-2) 47.2 H (0.5-3.6) ng/mL Troponin I 14.50 H* 11.10 H* (0.02-0.05) ng/mL B-Natriuretic Peptide (0-100) pg/mL Coagulation 05/28/18 05/28/18 05/28/18 Range/Units 06:40 06:40 16:26 PT 10.2 (9.8-11.6) sec APTT 30.1 43.4 H D (23.4-31.7) sec B-Natriuretic Peptide 140 H (0-100) pg/mL 05/29/18 05/29/18 Range/Units 00:10 04:00 PT (9.8-11.6) sec APTT 40.7 H 39.7 H (23.4-31.7) sec B-Natriuretic Peptide (0-100) pg/mL Lipids 05/28/18 Range/Units 06:40 Triglycerides 72 (42-150) mg/dL Cholesterol 150 (120-200) mg/dL HDL Cholesterol 32.8 L (40.0-60.0) mg/dL Cholesterol/HDL Ratio 4.57 Ratio CBC 05/28/18 05/29/18 Range/Units 06:40 04:00 WBC 7.6 9.3 (4.0-11.0) th/mm3 RBC 4.54 3.95 L (4.50-5.90) mil/mm3 Hgb 13.2 11.9 L (13.0-17.0) gm/dL Hct 39.2 34.6 L (39.0-51.0) % Plt Count 145 L 143 L (150-450) th/mm3 Neut # (Auto) 4.7 6.4 (1.8-7.7) th/mm3 Lymph # (Auto) 1.6 1.8 (1.0-4.8) th/mm3 [place] # (Auto) 0.9 1.0 H (0.0-0.9) th/mm3 Eos # (Auto) 0.1 0.0 (0.0-0.4) th/mm3 Baso # (Auto) 0.3 H 0.0 (0.0-0.2) th/mm3 Comprehensive Metabolic Panel 05/28/18 05/29/18 Range/Units 06:40 04:00 Sodium 137 138 (136-145) meq/L Potassium 3.7 3.8 (3.5-5.1) meq/L Chloride 104 105 (98-107) meq/L Carbon Dioxide 25.4 24.8 (21.0-32.0) meq/L BUN 12 9 (7-18) mg/dL Creatinine 0.85 0.79 (0.60-1.30) mg/dL Calcium 8.4 L 8.3 L (8.5-10.1) mg/dL AST 26 58 H (15-37) U/L ALT 28 34 (12-78) U/L Alkaline Phosphatase 93 75 (45-117) U/L Total Protein 7.6 6.8 D (6.4-8.2) g/dL Albumin 3.6 3.2 L (3.4-5.0) g/dL Intake and Output 05/28/18 05/29/18 05/29/18 22:59 06:59 14:59 Intake Total 1480 / 1480 630 / 630 250 / 250 Output Total 350 / 350 Balance 1130 / 1130 630 / 630 250 / 250 Intake: IV 1000 / 1000 250 / 250 Heparin/D5W 25,000 U/250 mL 25, 250 / 250 000 unit In 250 ml @ Per Protocol IV.CONT TITRATE PRN Rx #:[id number] NS Inj 1,000 ML @ 75 mls/hr IV. 1000 / 1000 CONT .[id number] REVA Rx#: [id number] Oral 480 / 480 630 / 630 Output: Urine 350 / 350 Other: # Voids 3 Date of Last Bowel Movement 05/26/18 05/26/18 05/28/18 # Bowel Movements 0 Weight 158 lb 11.725 oz - Imaging and Cardiology Imaging: Impressions Chest X-Ray 05/28/18 07:12 CONCLUSION: No evidence of acute cardiopulmonary disease. Assessment and Plan - Plan 57-year-old Andrea male smoker who denies any past medical history, who presented for chest pain. NSTEMI: Discussed risk/benefits/alternatives of treatment, patient agreeable to proceed at this time with left heart catheterization on Wednesday, n.p.o. after midnight Wednesday. Continue heparin gtt. continue aspirin, metoprolol, atorvastatin. Strongly encouraged tobacco cessation. Ischemic cardiomyopathy: Mild. Echo with EF 40-45%. LHC as above. Consider addition of RADHA inhibitor if BP allows. Discussed Condition With: Patient with at bedside, Dr. Coreas
--- NOTE | 2018-05-29 14:14 | ECG ---
Date Performed: 05/28/2018 Time Performed: 19:56:26 PTAGE: 57 years EKG: Sinus rhythm Inferior/lateral ST-T changes may be due to myocardial ischemia Abnormal ECG PREVIOUS TRACING : 05/28/2018 12.30 DOCTOR: Frederick Coreas Interpretating Date/Time 05/29/2018 14:10:07
[2018-05-29] MEDS: Temazepam 15 MG Capsule PO PRN (20:46)
[2018-05-30] MEDS: Sod Chloride 0.9% Inj 1,000 ML IV.CONT SCH ×3 (01:23→20:49)
[2018-05-30 04:21] LABS: Hemoglobin 11.7 gm/dL (13.0-17.0); Mean Corpuscular HGB Conc 34.5 % (32.0-36.0); Mean Corpuscular Hemoglobin 30.2 pg (27.0-34.0); Mean Corpuscular Volume 87.4 fL (80.0-100.0); Mean Platelet Volume 10.9 fL (7.0-11.0); Platelet Count 146 th/mm3 (150-450); Red Blood Count 3.89 mil/mm3 (4.50-5.90); Red Cell Distribution Width 13.2 % (11.6-17.2)
[2018-05-30 04:30] LABS: Activated Partial Thrombo Time 38.8 sec (23.4-31.7); INR 1.1 Ratio; Prothrombin Time 11.4 sec (9.8-11.6)
[2018-05-30 04:51] LABS: Anion Gap 4 meq/L (5-15); Blood Urea Nitrogen 9 mg/dL (7-18); Calcium 8.5 mg/dL (8.5-10.1); Carbon Dioxide 27.8 meq/L (21.0-32.0); Chloride 107 meq/L (98-107); Glomerular Filtration Rate Greater Than 89 mL/min (>89); Glucose,Random 90 mg/dL (74-106); Magnesium 2.1 mg/dL (1.5-2.5); Potassium 4.1 meq/L (3.5-5.1); Sodium 139 meq/L (136-145)
[2018-05-30] MEDS ORDERED: Metoprolol Tartrate 25 MG Tablet PO SCH (05:00)
[2018-05-30] MEDS ORDERED: Heparin 10,000 UNITS/10 ML Vial (for IV use) IV.PUSH PRN ×2 (06:45→07:00)
[2018-05-30] MEDS ORDERED: Heparin/NS PF Inj 1,000 ML ONE (08:19)
[2018-05-30] MEDS ORDERED: fentaNYL Citrate Inj 100 MCG/2 ML Ampul ONE (08:19)
--- NOTE | 2018-05-30 08:19 | P.PNIM ---
Subjective Interval history: Patient seen and examined this morning on follow up prior to scheduled cath No active complaints of chest pain, palpitations, nausea, vomiting or diaphoresis doing well overnight currently NPO and labwork reviewed on heparin ggt to be held before cath Physical Exam Vital signs: Vital Signs 05/29/18 09:00 05/29/18 10:00 05/29/18 11:00 Temperature Pulse Rate 84 94 H 90 Respiratory Rate Blood Pressure Pulse Oximetry 05/29/18 11:21 05/29/18 12:00 05/29/18 13:00 Temperature 98.4 F Pulse Rate 91 H 87 82 Respiratory Rate 20 Blood Pressure 110/57 L Pulse Oximetry 99 05/29/18 14:00 05/29/18 15:00 05/29/18 15:45 Temperature 98.3 F Pulse Rate 96 H 97 H 97 H Respiratory Rate 20 Blood Pressure 117/63 Pulse Oximetry 99 05/29/18 16:00 05/29/18 17:00 05/29/18 19:00 Temperature Pulse Rate 96 H 103 H 92 H Respiratory Rate Blood Pressure Pulse Oximetry 05/29/18 20:00 05/29/18 21:00 05/29/18 22:00 Temperature 99 F Pulse Rate 100 H 98 H 82 Respiratory Rate 18 Blood Pressure 109/63 Pulse Oximetry 98 05/29/18 23:00 05/29/18 23:01 05/29/18 23:57 Temperature 98.6 F Pulse Rate 88 88 84 Respiratory Rate 16 Blood Pressure 108/60 Pulse Oximetry 99 05/30/18 01:00 05/30/18 02:00 05/30/18 02:55 Temperature Pulse Rate 87 86 86 Respiratory Rate Blood Pressure Pulse Oximetry 05/30/18 03:56 05/30/18 04:00 05/30/18 05:00 Temperature 98.3 F Pulse Rate 90 88 94 H Respiratory Rate 18 Blood Pressure 111/62 Pulse Oximetry 99 05/30/18 06:00 05/30/18 07:00 Temperature Pulse Rate 86 102 H Respiratory Rate Blood Pressure Pulse Oximetry Intake & Output 05/29/18 05/30/18 05/30/18 18:59 06:59 18:59 Intake Total 970 / 970 1630 / 1630 Output Total 750 / 750 Balance 220 / 220 1630 / 1630 Weight 70 kg Intake: IV 250 / 250 1000 / 1000 Heparin/D5W 25,000 U/250 mL 25, 250 / 250 000 unit In 250 ml @ Per Protocol IV.CONT TITRATE PRN Rx #:[id number] NS Inj 1,000 ML @ 75 mls/hr IV. 1000 / 1000 CONT .[id number] REVA Rx#: [id number] Oral 720 / 720 630 / 630 Output: Urine 750 / 750 Other: # Voids 3 Date of Last Bowel Movement 05/29/18 05/29/18 # Bowel Movements 1 Results Labs CBC & Chem 7: 05/30/18 03:34 05/30/18 03:34 Labs: Microbiology 05/29/18 15:00 Stool Stool Occult Blood (TAMIA) - Final Hemoccult negative Assessment and Plan Plan Patient is a very pleasant 57-year-old gentleman with no significant past medical cardiac history who presents with new onset chest pain found to have T wave inversions in the inferior leads with elevated troponin levels admitted for NSTEMI Cardiology: Non-ST elevation myocardial infarction Cardiology consulted and recommendations appreciated Continue beta-christina, aspirin, and statin therapy Oxygen supplemental as needed for shortness of breath Continue telemetry monitoring. EKG PRN for chest pain - scheduled for cath today with cardiology - titrate off nitro ggt today. - diet after cath later cardiac - No new tele events Psychiatry: Smoking counselling provided on 05/29. CODE STATUS: Full code DVT prophylaxis: Heparin drip Diet: N.p.o.
--- NOTE | 2018-05-30 08:23 | P.PNCA ---
Subjective Interval history: Patient seen and examined. No complaints. no further chest pain. He is ready for [facility] this AM. Medications and Allergies Active Medications: Active Medications Acetaminophen (Tylenol) 650 mg PO Q4H PRN PRN Reason: Temp > 100.4 Al Hydroxide/Mg Hydroxide (Milk Of [place]) 30 ml PO Q12H PRN PRN Reason: Mild Constipation Aspirin (Aspirin Chew) 81 mg PO DAILY [facility] Last Admin: 05/29/18 08:09 Dose: 81 mg Atorvastatin Calcium (Lipitor) 40 mg PO DAILY@2000 [facility] Last Admin: 05/29/18 20:46 Dose: 40 mg Heparin Sodium (Porcine) (Heparin Inj) 2,500 units IV.PUSH UNSCH PRN PRN Reason: aPTT 25-39 Last Admin: 05/30/18 06:53 Dose: 2,500 units Heparin Sodium (Porcine) (Heparin Inj) 5,000 units IV.PUSH UNSCH PRN PRN Reason: aPTT < 25 Heparin Sodium/Dextrose (Heparin/D5w 25,000 U/250 Ml) 25,000 unit in 250 mls @ 0 mls/hr IV.CONT TITRATE PRN; Protocol PRN Reason: Per Protocol Last Titration: 05/30/18 06:31 Dose: 10 units/hr, 0.1 mls/hr Sodium Chloride (Ns Inj) 1,000 mls @ 75 mls/hr IV.CONT .[id number] [facility] Last Admin: 05/30/18 05:45 Dose: 75 mls/hr Nitroglycerin/Dextrose (Nitroglycerin Drip Premix) 50 mg in 250 mls @ 1.5 mls/ hr IV.CONT TITRATE PRN; Protocol PRN Reason: Per Protocol Last Admin: 05/28/18 19:31 Dose: 5 mcg/min, 1.5 mls/hr Metoprolol Tartrate (Lopressor) 25 mg PO BID [facility] Last Admin: 05/29/18 20:46 Dose: 25 mg Morphine Sulfate (Morphine Inj) 4 mg IV.PUSH Q4H PRN PRN Reason: Pain 7 to 10 Morphine Sulfate (Morphine Inj) 2 mg IV.PUSH Q4H PRN PRN Reason: Pain 3 to 6 Nitroglycerin (Nitrostat Sl) 0.4 mg SL Q5M PRN PRN Reason: CHEST PAIN Ondansetron HCl (Zofran Inj) 4 mg IV.PUSH Q6H PRN PRN Reason: NAUSEA OR VOMITING Sodium Chloride (Ns Flush) 2 ml IV.FLUSH BID [facility] Last Admin: 05/29/18 20:46 Dose: 2 ml Sodium Chloride (Ns Flush) 2 ml IV.FLUSH PRN PRN PRN Reason: FLUSH AFTER USING IV ACCESS Temazepam (Restoril) 15 mg PO HS PRN PRN Reason: INSOMNIA Last Admin: 05/29/18 20:46 Dose: 15 mg Allergies Allergy/AdvReac Type Severity Reaction Status Date / Time No Known Allergies Allergy Verified 05/28/18 06:49 Home Medications Medication Instructions Recorded Confirmed Type aspirin [Aspir-81] 81 mg PO DAILY 05/28/18 05/28/18 History ibuprofen 600 mg PO TID PRN 05/28/18 05/28/18 History Physical Exam Vital signs: Vital Signs 05/29/18 09:00 05/29/18 10:00 05/29/18 11:00 Temperature Pulse Rate 84 94 H 90 Respiratory Rate Blood Pressure Pulse Oximetry 05/29/18 11:21 05/29/18 12:00 05/29/18 13:00 Temperature 98.4 F Pulse Rate 91 H 87 82 Respiratory Rate 20 Blood Pressure 110/57 L Pulse Oximetry 99 05/29/18 14:00 05/29/18 15:00 05/29/18 15:45 Temperature 98.3 F Pulse Rate 96 H 97 H 97 H Respiratory Rate 20 Blood Pressure 117/63 Pulse Oximetry 99 05/29/18 16:00 05/29/18 17:00 05/29/18 19:00 Temperature Pulse Rate 96 H 103 H 92 H Respiratory Rate Blood Pressure Pulse Oximetry 05/29/18 20:00 05/29/18 21:00 05/29/18 22:00 Temperature 99 F Pulse Rate 100 H 98 H 82 Respiratory Rate 18 Blood Pressure 109/63 Pulse Oximetry 98 05/29/18 23:00 05/29/18 23:01 05/29/18 23:57 Temperature 98.6 F Pulse Rate 88 88 84 Respiratory Rate 16 Blood Pressure 108/60 Pulse Oximetry 99 05/30/18 01:00 05/30/18 02:00 05/30/18 02:55 Temperature Pulse Rate 87 86 86 Respiratory Rate Blood Pressure Pulse Oximetry 05/30/18 03:56 05/30/18 04:00 05/30/18 05:00 Temperature 98.3 F Pulse Rate 90 88 94 H Respiratory Rate 18 Blood Pressure 111/62 Pulse Oximetry 99 05/30/18 06:00 05/30/18 07:00 Temperature Pulse Rate 86 102 H Respiratory Rate Blood Pressure Pulse Oximetry Intake & Output 05/29/18 05/30/18 05/30/18 18:59 06:59 18:59 Intake Total 970 / 970 1630 / 1630 Output Total 750 / 750 Balance 220 / 220 1630 / 1630 Weight 70 kg Intake: IV 250 / 250 1000 / 1000 Heparin/D5W 25,000 U/250 mL 25, 250 / 250 000 unit In 250 ml @ Per Protocol IV.CONT TITRATE PRN Rx #:[id number] Inj 1,000 ML @ 75 mls/hr IV. 1000 / 1000 CONT .[id number] REVA Rx#: [id number] Oral 720 / 720 630 / 630 Output: Urine 750 / 750 Other: # Voids 3 Date of Last Bowel Movement 05/29/18 05/29/18 # Bowel Movements 1 Narrative: GENERAL: Well-developed well-nourished. In no acute distress. NECK: No carotid bruits. No JVD. CARDIOVASCULAR: Regular rate and rhythm. No murmur appreciated. RESPIRATORY: No accessory muscle use. Clear to auscultation. Breath sounds equal bilaterally. MUSCULOSKELETAL: No clubbing or cyanosis. No edema. NEUROLOGICAL: Awake and alert. Normal speech. Results 05/30/18 03:34 05/30/18 03:34 Cardiac Enzymes 05/28/18 05/28/18 05/29/18 Range/Units 11:55 19:36 04:00 AST 58 H (15-37) U/L CK-MB (CK-2) 56.0 H 47.2 H (0.5-3.6) ng/mL Troponin I 13.40 H* 14.50 H* 11.10 H* (0.02-0.05) ng/mL Coagulation 05/28/18 05/29/18 05/29/18 Range/Units 16:26 00:10 04:00 PT (9.8-11.6) sec APTT 43.4 H D 40.7 H 39.7 H (23.4-31.7) sec 05/30/18 Range/Units 03:34 PT 11.4 (9.8-11.6) sec APTT 38.8 H (23.4-31.7) sec Lipids 05/28/18 Range/Units 06:40 Triglycerides 72 (42-150) mg/dL Cholesterol 150 (120-200) mg/dL HDL Cholesterol 32.8 L (40.0-60.0) mg/dL Cholesterol/HDL Ratio 4.57 Ratio CBC 05/29/18 05/30/18 Range/Units 04:00 03:34 WBC 9.3 8.0 (4.0-11.0) th/mm3 RBC 3.95 L 3.89 L (4.50-5.90) mil/mm3 Hgb 11.9 L 11.7 L (13.0-17.0) gm/dL Hct 34.6 L 34.0 L (39.0-51.0) % Plt Count 143 L 146 L (150-450) th/mm3 Neut # (Auto) 6.4 (1.8-7.7) th/mm3 Lymph # (Auto) 1.8 (1.0-4.8) th/mm3 [place] # (Auto) 1.0 H (0.0-0.9) th/mm3 Eos # (Auto) 0.0 (0.0-0.4) th/mm3 Baso # (Auto) 0.0 (0.0-0.2) th/mm3 Comprehensive Metabolic Panel 05/29/18 05/30/18 Range/Units 04:00 03:34 Sodium 138 139 (136-145) meq/L Potassium 3.8 4.1 (3.5-5.1) meq/L Chloride 105 107 (98-107) meq/L Carbon Dioxide 24.8 27.8 (21.0-32.0) meq/L BUN 9 9 (7-18) mg/dL Creatinine 0.79 0.80 (0.60-1.30) mg/dL Calcium 8.3 L 8.5 (8.5-10.1) mg/dL AST 58 H (15-37) U/L ALT 34 (12-78) U/L Alkaline Phosphatase 75 (45-117) U/L Total Protein 6.8 D (6.4-8.2) g/dL Albumin 3.2 L (3.4-5.0) g/dL Intake and Output 05/29/18 05/30/18 05/30/18 22:59 06:59 14:59 Intake Total 720 / 720 1630 / 1630 Output Total 750 / 750 Balance -30 / -30 1630 / 1630 Intake: IV 1000 / 1000 NS Inj 1,000 ML @ 75 mls/hr IV. 1000 / 1000 CONT .[id number] REVA Rx#: [id number] Oral 720 / 720 630 / 630 Output: Urine 750 / 750 Other: # Voids 3 Date of Last Bowel Movement 05/29/18 05/29/18 # Bowel Movements 1 Weight 70 kg Assessment and Plan - Plan 57-year-old Andrea male smoker who denies any past medical history, who presented for chest pain. NSTEMI: Discussed risk/benefits/alternatives of treatment, patient agreeable to proceed at this time with left heart catheterization today. continue aspirin, metoprolol, atorvastatin. Strongly encouraged tobacco cessation. Ischemic cardiomyopathy: Mild. Echo with EF 40-45%. LHC as above. Start Losartan 25mg daily.
[2018-05-30] MEDS ORDERED: Iohexol 350 MG/ML 50 ML Vial (for Cath Lab) IVCONTRAST ONE (08:35)
[2018-05-30] MEDS ORDERED: Heparin 10,000 UNITS/10 ML Vial (for IV use) ONE (08:40)
[2018-05-30] MEDS ORDERED: Lidocaine 1% Inj 50 ML Vial INFILTRATN PRN (09:11)
[2018-05-30] MEDS ORDERED: Bacitracin Oint 0.9 GM Packet TOPICAL ONE (09:11)
--- NOTE | 2018-05-30 09:16 | P.PCN ---
Date of procedure: 05/30/18 Pre-op diagnosis: non ST elevation myocardial infarction Procedure: char filter operator helper: Ceferino Coreas MD Procedures performed: 1. Fluoroscopy with interpretation 2. Coronary angiography 3. Left heart catheterization Methods: Risks, benefits, and alternatives were discussed with the patient. Patient understood and consented to the procedure. Patient was brought into the cardiac catheterization lab and placed on the catheterization table. The patient's right wrist was prepped and draped in a sterile fashion. The right wrist was anesthetized with 1% lidocaine. Right wrist was cannulated and a 6 Ivorian 11 cm sheath was placed without difficulty. 200 mcg of intra-arterial nitroglycerin was administered and 5000 units of intravenous heparin. Coronary angiography: The left main coronary artery was selectively engaged with a 5 Ivorian JL 3.5 Elida catheter. The right coronary circulation was selectively engaged with a 5 Ivorian JR 5 Elida catheter. 1. Left main coronary artery has a distal 50% stenosis. 2. Left anterior descending coronary artery had severe stenosis in the mid segment of 90%. 3. Left circumflex coronary artery has an ostial stenosis of 90%. There is several smaller obtuse marginal branches with moderate diffuse disease. 4. Right coronary is a dominant vessel giving rise to the posterior descending branch. The right coronary artery has 99% subtotal occlusion in the proximal to mid segment. Left heart catheterization: Intraventricular hemodynamics 120/10 mmHg. No aortic stenosis on transvalvular pullback. Conclusions: 1. Severe three-vessel [place] coronary disease 2. Normal left-sided filling pressures Plan: Guideline directed medical therapy. Sheath removed and Hemoband applied. Monitor for postprocedural complications. We will consult cardiothoracic surgery for consideration of coronary bypass surgery.
--- NOTE | 2018-05-30 09:18 | CATHPROC ---
[employer] HIS Report Study Information Study Number Admission Scheduled Start Study Start [id number] May 28 2018 8:43AM 05/30/2018 May 30 2018 8:12AM [facility] [facility] Cardiac Catheterization Admit Source Facility Department Other [facility] - [facility] And [facility] Supervisor Physician and Clinical Staff Initial Frederick Mccarthy Adhesive Sprayer Lee Khanna,DONAL Recorder Ivone Pride ,RT(R) ScrKassie Klein,RT(R) (BS) Procedures Performed Procedure Location (Site) Vessel Name Coronary Angiograms LCA Left Coronary Coronary Angiograms RCA Right Coronary L Heart Cath Equipment Time Icer Air Conditioning Description Size Mfg Part Number Used/Scraped TRANSDUCER, TRUWAVE [id number] 08:25 [employer] SCHNEIDER * Used W/STOCKCOCK *[id number] *[id number] 08:25 [employer] BLANKET,WARM AIR CCL * Used *[id number] 08:25 [employer] PACK, CCL CUSTOM * Used *[id number] 08:25 [employer] SUPPORT, ARTERIAL ADULT 07815 *[id number] Used [id number] 08:39 MED[employer] JL 3.5 DXTERITY CATHETER FR 5 Used *[id number] BAND, RADIAL COMPRESSION TR [id number] 08:51 [employer] 24CM Used SHORT 24 *[id number] SHEATH, FR6 RADIAL PRELUDE 08:25 [employer] FR 6 [id number] Used EASE 11CM [id number] 08:25 [employer] WIRE, EXCHANGE 260CM 3MMJ 260CM Used *[id number] 08:25 NAMIC MANIFOLD, 4 PORT * Used *[id number] 08:25 [employer] OMNIPAQUE, 350 MG, 150ML 150ML [id number] Used History: Current Medications Medication Dosage/Unit Route Frequency Last Date/Time Taken Beta Ivania ASA Statins (any) History: Allergies Allergy Reaction No Known Allergies History: Risk Factors Family History of Hypertension Dyslipidemia Previous OH Previous Heart Failure Premature CAD No No Yes No No Prior Valve Prior PCI Prior CABG Surgery No No No Cerebrovascular Peripheral Artery Chronic Lung On Dialysis Diabetes Disease Disease Disease No No No No No History: Stress Tests Stress or Imaging Studies Performed No History: Other Current Smoker Packs a Day Years Used Pack Years Yes 1 44 44 Labs Hgb (g/dl) Hct (%) WBC (l/cumm) Platelets (thousands) 11.60-17.00 35.00-51.00 4.00-11.00 150.00-450.00 11.7 34 8 146 BUN (mg/dl) Creatinine (mg/dl) BUN:Creatinine (1:x) 7.00-18.00 0.50-1.30 10.00-20.00 9 0.8 11.3 Na (meq/l) K (meq/l) 136.00-145.00 3.50-5.10 139 4.1 INR (PTT:PT) 0.90-1.10 1.1 Troponin I (ng/ml) CPK (u/l) CPK-MB (ng/ML) 0.02-0.05 26.00-308.00 0.50-3.60 11 333 Not Drawn Medication Medication Total Dose (Bolus/Oral) Medication Total Dosage/Unit 1% XYLOCAINE 5 mL FENTANYL 50 mcg HEPARIN 3000 units RADIAL COCKTAIL 5 mL (Bolus) VERSED 2 mg Medications (Bolus/Oral) Medication Time Given Dosage/Unit Administered By Reason VERSED 05/30/2018 8:35:00 AM 2 mg Lee Khanna 2 mg VERSED given in lab by Lee Khanna, DONAL via Peripheral IV. Ordered by Frederick Coreas. FENTANYL 05/30/2018 8:35:06 AM 50 mcg Lee Khanna 50 mcg FENTANYL given in lab by Lee Khanna, DONAL via Peripheral IV. Ordered by Frederick Coreas. 1% XYLOCAINE 05/30/2018 8:36:55 AM 5 mL Frederick Coreas 5 mL 1% XYLOCAINE given in lab by Frederick Coreas in Right Radial via Subcutaneous. Ordered by Frederick Coreas. Ntg 200mcg Verapamil 2.5mg Heparin RADIAL COCKTAIL 05/30/2018 8:38:13 AM 5 mL (Bolus) Frederick Coreas 2000U 5 mL (Bolus) RADIAL COCKTAIL given in lab by Frederick Coreas via Radial. Using [Solution Name]. Ordere d by Frederick Coreas. Reason: Ntg 200mcg HEPARIN 05/30/2018 8:41:00 AM 3000 units Lee Khanna 3000 units HEPARIN given in lab by Lee Khanna, DONAL via Peripheral IV. Ordered by Frederick Coreas. Medication (Drip) Medication Time Given Dosage/Unit Concentration/Unit Diluent (ml) Solution IV Solutions 05/30/2018 8:17:09 AM 50 mL (IV) NaCl .9 Patient arrived on IV Solutions via Peripheral IV. Pump/Drip Flow using NaCl .9. Initial Case Assessment Cardiovascular HR NIBP Chest Pain 94 121/75 0 Edema Present Skin color Skin None Normal Warm Dry Circulatory - Right Pulses Dorsalis Pedis Femoral Radial 1 2 3 Scale (0,1,2,3,4,d) Scale (0,1,2,3,4,d) Neurological State Oriented to time-place- Alert Moves all extremities person Respiration - General Respiration Rate SpO2 (%) (B/min) 11 99 Final Case Assessment Cardiovascular HR NIBP Chest Pain 94 106/62 0 Edema Present Skin color Skin None Normal Warm Dry Circulatory - Right Pulses Dorsalis Pedis Femoral Radial 1 2 3 Scale (0,1,2,3,4,d) Scale (0,1,2,3,4,d) Neurological State Oriented to time-place- Alert Moves all extremities person Respiration - General Respiration Rate SpO2 (%) (B/min) 11 99 Chronological Log Time Study Chronological Log 8:12:02 Patient arrived via Bed. 8:12:03 Patient Name, D.O.B, / Armband Verified By R.N. 8:12:04 Consent signed by the physician and the patient and verified by the O And M Supervisor staff. 8:12:04 Pre-op and post- op instructions given; patient acknowledges understanding of instructions. 8:16:58 Verbal Stimulation=2 Physical Stimulation=2 Airway=2 Respiration=2 TOTAL=8. (0=absent, 1=frazier ited, 2=present) 8:17:02 Allens test performed on the right radial and ulnar artery. 8:17:05 Patient has been NPO for More than 6Hrs. 8:17:06 Skin Breakdown-none per patient 8:17:06 Patient Warmer Placed on the Table. 8:17:07 Edwardo Prominences Protected 8:17:08 A # 20 IV was noted in the Antecubital (right). Grade = 0 8:17:09 Patient arrived on IV Solutions via Peripheral IV. Pump/Drip Flow using NaCl .9. 8:17:11 History and physical on the chart or being dictated. Assessment: Initial Case, HR=94 BPM, MTYA=705/75 mmhg, Chest Pain=0, Edema=None, Color=Normal, S kin = Warm, Dry 8:17:11 Right Pulses: Rufino Ped=1, Femoral=2, Radial=3 Neurological: State=Alert, Ox3, TAM Respiration: Resp=11 B/min, SpO2=99 % Vitals capture started with the following parameters, Patient=Adult, Interval=5 min, Initial Pre hpjuv=375 mmHg, 8:18:14 Deflation Rate=5 mmHg, Cuff placed on Left Arm 8:18:49 HR=96 bpm, BOJM=557/75 mmhg, SpO2=99.0 %, Resp=6 B/min, Pain=0, Jeramy=10, Smith=2 8:23:46 HR=98 bpm, LKQX=307/85 mmhg, SpO2=99.0 %, Resp=14 B/min, Pain=0, Jeramy=10, Smith=2 8:26:09 Right Radial and groin(s) prepped with 2% chlorhexidine, and draped after a 3 min. waiting t jose eduardo. 8:28:09 MD paged 8:28:49 HR=90 bpm, PBTS=024/70 mmhg, SpO2=99.0 %, Resp=9 B/min, Pain=0, Jeramy=10, Smith=2 8:31:45 Reference ECG taken 8:31:48 Pressure channel 1 zeroed. 8:31:53 MD responded 8:32:20 MD arrived. 8:33:48 HR=94 bpm, ZYAU=506/74 mmhg, SpO2=98.0 %, Resp=8 B/min, Pain=0, Jeramy=10, Smith=2 Time Out. Correct patient, correct procedure, correct physician, labs, allergies, and equipment verified with packing house laborer 8:34:12 team present. Fire risk assesment completed (see hard stop sheet for coding). Time Out Concu rred by MD and individual staff in procedure. 8:35:00 2 mg VERSED given in lab by Lee Khanna, RN via Peripheral IV. Ordered by Frederick Coreas. 8:35:06 50 mcg FENTANYL given in lab by Lee Khanna, RN via Peripheral IV. Ordered by Keny Coreas. 8:36:52 Case Start 8:36:55 5 mL 1% XYLOCAINE given in lab by Frederick Coreas in Right Radial via Subcutaneous. Ordered b y Frederick Coreas. 8:37:45 Access site was Right Radial Artery . A SHEATH, FR6 RADIAL PRELUDE EASE 11CM FR 6 was advanced into the Radial (right) using the Percu taneous 8:37:58 technique. 5 mL (Bolus) RADIAL COCKTAIL given in lab by Frederick Coreas via Radial. Using [Solution Name]. O rdered by Joss 8:38:13 Frederick. Reason: Ntg 200mcg 8:38:50 HR=92 bpm, BGEA=542/69 mmhg, SpO2=92.0 %, Resp=14 B/min, Pain=0, Jeramy=10, Smith=2 A JR 5.0 INFINITI CATHETER FR 5 was advanced over a wire. OMNIPAQUE, 350 MG, 150ML 150ML was use d for 8:39:16 injections. Recorded Pressure: Ao, HR=94, Condition=Condition 1 8:40:01 (Aorta) Ao 101/58/76 8:40:31 The RCA was injected and visualized at various angles. OMNIPAQUE, 350 MG, 150ML 150ML used. 8:41:00 3000 units HEPARIN given in lab by Lee Khanna RN via Peripheral IV. Ordered by Anca Coreas. After removing the current catheter a JL 3.5 DXTERITY CATHETER FR 5 was advanced over a WIRE, EXCHANGE 260CM 8:41:18 3MMJ 260CM. Recorded Pressure: LV, HR=88, Condition=Condition 1 8:41:35 (Left Ventricle) LV 92/10/20 Recorded Pressure: LV, Ao, HR=87, Condition=Condition 1 8:41:43 (Left Ventricle) LV 92/9/18, (Aorta) Ao 88/49/65 8:43:17 The LCA was injected and visualized at various angles. OMNIPAQUE, 350 MG, 150ML 150ML use d. 8:43:51 HR=80 bpm, CYAX=490/62 mmhg, SpO2=92.0 %, Resp=17 B/min, Pain=0, Jeramy=10, Smith=2 8:45:14 Catheter was removed 8:45:16 Case End (Physician broke scrub) Assessment: Final Case, HR=94 BPM, EXFB=784/62 mmhg, Chest Pain=0, Edema=None, Color=Normal, S kin = Warm, Dry 8:46:16 Right Pulses: Rufino Ped=1, Femoral=2, Radial=3 Neurological: State=Alert, Ox3, TAM Respiration: Resp=11 B/min, SpO2=99 % 8:46:28 Catheter(s) removed without difficulty Radial Compression Device Used. 11 mLs of air placed in BAND, RADIAL COMPRESSION TR SHORT 24 2 4CM. Affected 8:46:33 hand 97 % O2 saturation. 8:46:39 Sterile dressing applied to site 8:46:40 No case complications noted. 8:46:42 Cine recording checked. 8:46:43 Bedside Report will be given. 8:46:45 A Left Heart Cath was performed. 8:47:00 Patient moved to stretcher 8:48:48 HR=90 bpm, GAHE=386/72 mmhg, SpO2=95.0 %, Resp=16 B/min, Pain=0, Jeramy=10, Smith=2 End Study - Contrast Media Used In Study Contrast Total Opened (mL) Total Used (mL) Total Wasted (mL) Omnipaque 50 50 0 End Study - Maximum Contrast Load Max Contrast Load (mL) 437.5 End Study - Radiation Exposure Fluoro Time Fluoro Dose (mGy) Cine Dose (uGym2) (minutes) 1.2 637 3222 End Study - Sheaths Sheaths Pulled By Sheath Hold Time (min) Kassie Medellin End Study - Patient Disposition Complications Transferred To Interventional Outcome No Telemetry Bed No attempt made
[2018-05-30] MEDS: Metoprolol Tartrate 25 MG Tablet PO SCH ×2 (10:08→20:55)
[2018-05-30] MEDS: Morphine Inj 4 MG/ML Vial IV.PUSH PRN (10:34)
[2018-05-30] MEDS ORDERED: Dextrose 50% in Water 50 ML Vial IV.PUSH PRN (11:16)
[2018-05-30] MEDS ORDERED: Insulin Regular (For Infusion) 100 UNIT in Sodium Chlor 0.9% Inj 99 ML IV.CONT PRN (11:16)
[2018-05-30] MEDS ORDERED: Chlorhexidine 4% Topical 120 APPLIC/120 ML Bottle TOPICAL SCH (11:30)
[2018-05-30] MEDS ORDERED: Sodium Chloride 0.9% Irr Bot 500 ML, ceFAZolin Inj 500 MG IRRIGATION SCH ×2 (11:30)
[2018-05-30] MEDS ORDERED: Sodium Chlor 0.9% Inj 77.5 ML, Papaverine Inj 60 MG, Nitroglycerin Inj 100 MCG, dilTIAZ... IRRIGATION SCH ×3 (11:30)
[2018-05-30 11:39] LABS: Baso % (Auto) 0.6 % (0.0-2.0); Eos % (Auto) 0.3 % (0.0-4.0); Hemoglobin 11.3 gm/dL (13.0-17.0); Lymph # (Auto) 1.9 th/mm3 (1.0-4.8); Lymph % (Auto) 24.1 % (9.0-44.0); Mean Corpuscular HGB Conc 34.2 % (32.0-36.0); Mean Corpuscular Hemoglobin 29.9 pg (27.0-34.0); Mean Corpuscular Volume 87.5 fL (80.0-100.0); Mean Platelet Volume 11.5 fL (7.0-11.0); Mono % (Auto) 13.1 % (0.0-8.0); Neut # (Auto) 4.9 th/mm3 (1.8-7.7); Neut % (Auto) 61.9 % (16.0-70.0); Platelet Count 139 th/mm3 (150-450); Red Blood Count 3.77 mil/mm3 (4.50-5.90); Red Cell Distribution Width 13.1 % (11.6-17.2); White Blood Count 7.9 th/mm3 (4.0-11.0)
[2018-05-30 11:44] LABS: Anion Gap 7 meq/L (5-15); Blood Urea Nitrogen 9 mg/dL (7-18); Calcium 7.9 mg/dL (8.5-10.1); Carbon Dioxide 23.2 meq/L (21.0-32.0); Chloride 108 meq/L (98-107); Glomerular Filtration Rate Greater Than 89 mL/min (>89); Glucose,Random 91 mg/dL (74-106); Potassium 3.9 meq/L (3.5-5.1); Sodium 138 meq/L (136-145)
--- NOTE | 2018-05-30 11:46 | P.PNCV ---
- Note Subjective/Hospital Course: pt seen and evaluated, full consult to follow sts discussed with pt RISK SCORES Procedure: Isolated CAB CALCULATE Risk of Mortality: 1.038% Renal Failure: 0.887% Permanent Stroke: 0.850% Prolonged Ventilation: 6.060% DSW Infection: 0.245% Reoperation: 2.222% Morbidity or Mortality: 9.147% Short Length of Stay: 52.939% Long Length of Stay: 3.778% Objective: Vital Signs - 24 hr 05/29/18 12:00 05/29/18 13:00 05/29/18 14:00 Temperature Pulse Rate 87 82 96 H Respiratory Rate Blood Pressure Pulse Oximetry 05/29/18 15:00 05/29/18 15:45 05/29/18 16:00 Temperature 98.3 F Pulse Rate 97 H 97 H 96 H Respiratory Rate 20 Blood Pressure 117/63 Pulse Oximetry 99 05/29/18 17:00 05/29/18 19:00 05/29/18 20:00 Temperature 99 F Pulse Rate 103 H 92 H 100 H Respiratory Rate 18 Blood Pressure 109/63 Pulse Oximetry 98 05/29/18 21:00 05/29/18 22:00 05/29/18 23:00 Temperature Pulse Rate 98 H 82 88 Respiratory Rate Blood Pressure Pulse Oximetry 05/29/18 23:01 05/29/18 23:57 05/30/18 01:00 Temperature 98.6 F Pulse Rate 88 84 87 Respiratory Rate 16 Blood Pressure 108/60 Pulse Oximetry 99 05/30/18 02:00 05/30/18 02:55 05/30/18 03:56 Temperature 98.3 F Pulse Rate 86 86 90 Respiratory Rate 18 Blood Pressure 111/62 Pulse Oximetry 99 05/30/18 04:00 05/30/18 05:00 05/30/18 06:00 Temperature Pulse Rate 88 94 H 86 Respiratory Rate Blood Pressure Pulse Oximetry 05/30/18 07:00 05/30/18 08:00 05/30/18 09:00 Temperature 98.2 F Pulse Rate 102 H 86 82 Respiratory Rate 18 Blood Pressure 108/61 Pulse Oximetry 95 05/30/18 10:00 05/30/18 11:00 Temperature Pulse Rate 87 91 H Respiratory Rate Blood Pressure Pulse Oximetry Labs: Laboratory Results - last 12 hr 05/30/18 05/30/18 05/30/18 03:34 03:34 03:34 WBC 8.0 RBC 3.89 L Hgb 11.7 L Hct 34.0 L MCV 87.4 MCH 30.2 MCHC 34.5 RDW 13.2 Plt Count 146 L MPV 10.9 Neut % (Auto) Lymph % (Auto) Bureau % (Auto) Eos % (Auto) Baso % (Auto) Neut # (Auto) Lymph # (Auto) Bureau # (Auto) Eos # (Auto) Baso # (Auto) WBC Differential Differential Comment PT 11.4 INR 1.1 APTT 38.8 H Sodium 139 Potassium 4.1 Chloride 107 Carbon Dioxide 27.8 Anion Gap 4 L BUN 9 Creatinine 0.80 Estimated GFR Greater than 89 Random Glucose 90 Calcium 8.5 Magnesium 2.1 05/30/18 05/30/18 10:00 10:00 WBC 7.9 RBC 3.77 L Hgb 11.3 L Hct 33.0 L MCV 87.5 MCH 29.9 MCHC 34.2 RDW 13.1 Plt Count 139 L MPV 11.5 H Neut % (Auto) 61.9 Lymph % (Auto) 24.1 Bureau % (Auto) 13.1 H Eos % (Auto) 0.3 Baso % (Auto) 0.6 Neut # (Auto) 4.9 Lymph # (Auto) 1.9 Bureau # (Auto) 1.0 H Eos # (Auto) 0.0 Baso # (Auto) 0.0 WBC Differential . Differential Comment Auto diff final PT INR APTT Sodium 138 Potassium 3.9 Chloride 108 H Carbon Dioxide 23.2 Anion Gap 7 BUN 9 Creatinine 0.71 Estimated GFR Greater than 89 Random Glucose 91 Calcium 7.9 L Magnesium Result Diagrams: 05/30/18 10:00 05/30/18 10:00
[2018-05-30 11:48] LABS: INR 1.2 Ratio; Prothrombin Time 11.7 sec (9.8-11.6)
[2018-05-30] MEDS ORDERED: ceFAZolin 2 GM Premix Inj 2 GM/50 ML PIGGYBACK IV.SIG SCH (12:13)
--- NOTE | 2018-05-30 13:07 | US ---
EXAM DATE: 05/30/2018 12:48 PM EST AGE/SEX: 57 years / Male INDICATIONS: Preop cardiac surgery. CLINICAL DATA: This is the patient's initial encounter. Patient reports that signs and symptoms have been present for 1 day and indicates a pain score of 0/10. MEDICAL/SURGICAL HISTORY: . Chest pain. . Cardiac cath. COMPARISON: [facility] [place], US VENOUS DOPPLER LEG BI, 05/30/2018. . MEASUREMENTS: RIGHT THIGH: Proximal:__5 mm Mid:__ 4 mm Distal:__4 mm LEFT THIGH: Proximal:__5 mm Mid:__4 mm Distal:__4 mm RIGHT CALF: Proximal:__1 mm Mid:__2 mm Distal:__2 mm LEFT CALF: Proximal:__2 mm Mid:__1 mm Distal:__2 mm FINDINGS: The venous system of the lower extremities are patent by color Doppler imaging. Measurements of the leg veins (in mm) are listed above. CONCLUSION: 1. Venous mapping as above Electronically signed by: Klaus Mckinnon MD Board Certified Radiologist 05/30/2018 1:06 PM EST
--- NOTE | 2018-05-30 13:07 | US ---
EXAM DATE: 05/30/2018 12:43 PM EST AGE/SEX: 57 years / Male INDICATIONS: Preop cardiac surgery. CLINICAL DATA: This is the patient's initial encounter. Patient reports that signs and symptoms have been present for 1 day and indicates a pain score of 0/10. MEDICAL/SURGICAL HISTORY: . Chest pain. . Cardiac cath. COMPARISON: No prior exams available for comparison. TECHNIQUE: Venous ultrasound of both lower extremities was performed from the inguinal ligament to t he proximal calf. Real-time, color Doppler and spectral tracing, compression and augmentation techni ques were used. FINDINGS: Right Leg: Normal compression of the deep venous system from the inguinal region to the proximal justyna f. No echogenic clot is seen. Normal response of the venous system to augmentation and respiration. Left Leg: Normal compression of the deep venous system from the inguinal region to the proximal calf . No echogenic clot is seen. Normal response of the venous system to augmentation and respiration. Other: None. CONCLUSION: 1. Negative for deep venous thrombosis Electronically signed by: Klaus Mckinnon MD Board Certified Radiologist 05/30/2018 1:06 PM EST
--- NOTE | 2018-05-30 13:28 | US ---
EXAM DATE: 05/30/2018 12:46 PM EST AGE/SEX: 57 years / Male INDICATIONS: Pre-cardiac surgery. CLINICAL DATA: This is the patient's initial encounter. Patient reports that signs and symptoms have been present for 1 day and indicates a pain score of 0/10. MEDICAL/SURGICAL HISTORY: . Chest pain. . Cardiac cath. COMPARISON: No prior exams available for comparison. VELOCITY PARAMETERS: ICA/CCA Ratio: Right 1.2 , Left 1.1 ICA: Right 113 cm/sec, Left 103 cm/sec CCA: Right 98 cm/sec, Left 93 cm/sec ECA: Right 142 cm/sec, Left 208 cm/sec Vertebral: Right 76 cm/sec antegrade, Left 68 cm/sec antegrade FINDINGS: Right Carotid: Mild arteriosclerotic plaque is visualized.The waveforms are within normal limits. Left Carotid: Mild arteriosclerotic plaque is visualized. The waveforms are within normal limits. Other: None. CONCLUSION: Negative for hemodynamically significant stenosis Electronically signed by: Klaus Mckinnon MD Board Certified Radiologist 05/30/2018 1:27 PM EST
--- NOTE | 2018-05-30 13:53 | XR ---
EXAM DATE: 05/30/2018 1:42 PM EST AGE/SEX: 57 years / Male INDICATIONS: Evaluate for pneumonia, pneumothorax, or communicable disease. Pre-op for CABG. CLINICAL DATA: This is the patient's initial encounter. Patient reports that signs and symptoms have been present for 1 day and indicates a pain score of 0/10. MEDICAL/SURGICAL HISTORY: Hypertension. . Cardiac cath. COMPARISON: [facility], CHEST 1V SINGLE AP, 05/28/2018. . FINDINGS: There is moderate peribronchial thickening and interstitial prominence suggesting an inflammatory pro cess. There is no evidence consolidation, pleural effusion or pneumothorax The heart and pulmonary vascularity are normal. The portion of the bony skeleton visualized is unremarkable. CONCLUSION: Moderate interstitial prominence and peribronchial thickening suspicious for inflammatory process. Electronically signed by: Klaus Mckinnon MD Board Certified Radiologist 05/30/2018 1:52 PM EST
[2018-05-30 15:06] LABS: Bilirubin,Urine Negative (Negative); Clarity,Urine Clear (Clear); Color,Urine Straw (Yellw/Straw); Glucose,Urine (UA) Negative (Negative); Leukocyte Esterase,Urine Negative (Negative); Nitrite,Urine Negative (Negative); Specific Gravity,Urine 1.011 (1.002-1.035)
[2018-05-30 16:16] LABS: Albumin 3.3 g/dL (3.4-5.0)
[2018-05-30 16:18] LABS: Total Protein 7.4 g/dL (6.4-8.2)
[2018-05-30 16:54] LABS: Hemoglobin A1c 5.6 % (4.3-6.0)
[2018-05-30] MEDS: Heparin Drip 25,000 UNIT/250 ML BAG IV.CONT PRN (20:56)
[2018-05-31] MEDS ORDERED: Chlorhexidine Gluconate 2% 1 Pack (2 Cloths) TOPICAL ONE (03:29)
[2018-05-31 03:31] LABS: Anion Gap 6 meq/L (5-15); Blood Urea Nitrogen 8 mg/dL (7-18); Calcium 8.8 mg/dL (8.5-10.1); Carbon Dioxide 27.7 meq/L (21.0-32.0); Chloride 106 meq/L (98-107); Glomerular Filtration Rate Greater Than 89 mL/min (>89); Glucose,Random 97 mg/dL (74-106); Magnesium 2.2 mg/dL (1.5-2.5); Potassium 4.2 meq/L (3.5-5.1); Sodium 140 meq/L (136-145)
[2018-05-31 03:32] LABS: Hematocrit 33.9 % (39.0-51.0); Hemoglobin 11.6 gm/dL (13.0-17.0); Mean Corpuscular HGB Conc 34.1 % (32.0-36.0); Mean Corpuscular Hemoglobin 29.6 pg (27.0-34.0); Mean Corpuscular Volume 86.7 fL (80.0-100.0); Platelet Count 159 th/mm3 (150-450); Red Blood Count 3.91 mil/mm3 (4.50-5.90); Red Cell Distribution Width 12.8 % (11.6-17.2); White Blood Count 7.2 th/mm3 (4.0-11.0)
[2018-05-31 03:36] LABS: Activated Partial Thrombo Time 38.6 sec (23.4-31.7); INR 1.1 Ratio; Prothrombin Time 11.2 sec (9.8-11.6)
[2018-05-31] MEDS ORDERED: Sodium Chlor 0.9% Inj 500 ML IV.SIG SCH (04:00)
[2018-05-31] MEDS: Metoprolol Tartrate 25 MG Tablet PO SCH ×3 (05:05→20:27)
[2018-05-31] MEDS ORDERED: ceFAZolin 2 GM Premix Inj 2 GM/50 ML PIGGYBACK IV.SIG ONE (06:20)
[2018-05-31] MEDS ORDERED: Heparin - SQ 10,000 UNITS/ML Vial ONE ×2 (06:21)
--- NOTE | 2018-05-31 07:22 | MB ---
cc: Gordy Gomez MD DATE: 05/30/2018 HISTORY OF PRESENT ILLNESS: A 57-year-old male. No primary care physician. Presented to the emergency room with chest pain. Also, had it about a week ago. Initial EKG showed some inferolateral T-wave changes. Troponin peaked at 14. There was some mention that he has had a heart catheterization in the past. He underwent further evaluation. It showed an echocardiogram, EF of 40-45%, mild mitral regurgitation. The patient underwent cardiac catheterization by Dr. Ceferino Coreas which showed left main disease 50%. The midsegment of the LAD had a 90% stenosis. The circ had a 90% stenosis, and the right coronary artery had a 99% subtotal occlusion in the proximal to mid segment. We were asked to see the patient in regard to coronary artery bypass grafting. PAST MEDICAL HISTORY: Includes tobacco abuse, coronary artery disease. PAST SURGICAL HISTORY: None. ALLERGIES: No known allergies. HOME MEDICATIONS: 1. Aspirin 81. 2. Ibuprofen p.r.n. FAMILY HISTORY: Father in his 70s from an OR. Mother during childbirth. SOCIAL HISTORY: The patient smoked 1 pack for the past 40 years, has 2 children. 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 REVIEW OF SYSTEMS: GENERAL: No night sweats, fever, heat and cold intolerance. SKIN: No psoriasis. HEENT: No blurred vision, hearing loss. RESPIRATORY: Positive for recent shortness of breath. CARDIOVASCULAR: As above in the HPI. GASTROINTESTINAL: No diarrhea or vomiting. GENITOURINARY: No burning, frequency, urgency. CENTRAL NERVOUS SYSTEM: No history of TIA, CVA, or seizure disorder. ENDOCRINOLOGY: No history of diabetes or hypothyroidism. PHYSICAL EXAMINATION: VITAL SIGNS: Blood pressure 108/60, heart rate of 82, temperature max 98.2. GENERAL: The patient is awake, alert, in no acute distress. HEENT: Head is normocephalic, atraumatic. Pupils equal and reactive. Oral mucosa pink, moist. NECK: Supple. No JVD. CARDIOVASCULAR: Heart sounds S1, S2. Regular rate and rhythm. No audible rubs, murmurs or gallop. EXTREMITIES: No cyanosis, clubbing, or edema. LABORATORY DATA: Shows hemoglobin of 11, hematocrit of 33. White cell count is 7.9, platelet count of 139. INR 1.2. Sodium 138, potassium 3.9, BUN of 9, creatinine 0.71. Troponin peaked at 14. AST 58, ALT 34. Cholesterol 150, triglycerides 72, LDL is 103. EKG as above. Venous Doppler shows negative for DVT. Vein mapping with good vessels. Carotid Doppler negative for hemodynamically-significant stenosis. FEV1 of 2.13, predicted 61%. IMPRESSION: Again, this is a 57-year-old male who ruled in for a non-STEMI. Risk factors include tobacco abuse. The cardiac films have been evaluated by Dr. Gomez. Procedures, alternatives, and risks have been discussed with the patient. The patient is agreeable to proceed. STS risk score is documented in the electronic record. The patient is scheduled for surgery on the 05/31/[address] Gordy Gomez. Procedures, alternatives, and risks have been discussed with the patient. The patient is agreeable to proceed. We will plan for tomorrow, 05/31/2018. Dictated by Svitlana Duncan APRN Patient seen and examined, chart and angiograms reviewed on 05/30/2018 and the findings discussed in detail with the patient and his family. Therapeutic options available including CABG was offered. I agree with Dr. Coreas that he will maximally benefit from bypass to his LAD, OM and RCA distributions. The risks, complications including but not limited to bleeding, infection, stroke, myocardial injury and , and benefits of the surgical procedure were discussed in details and all questions answered. He understands the provided information and agrees to proceed with the planned operation. We will plan on proceeding with the surgical procedure as describe above on tomorrow morning. In the meantime, we will obtain carotid duplex imaging and lower extremity vein mapping. Thank you for allowing me to participate in the care of this patient. MD JUAN Martinez/tacho , 04:02 PM , 04:11 PM JOSE ALBERTO
[2018-05-31] MEDS ORDERED: Protamine Sulfate Inj 250 MG/25 ML Vial IV.CONT ONE (07:24)
[2018-05-31] MEDS ORDERED: Calcium Chloride Inj 1 GM/10 ML Syringe IV.CONT ONE (07:24)
[2018-05-31] MEDS ORDERED: Sodium Bicarbonate 8.4% Inj 50 MEQ/50 ML Syringe IV.CONT ONE (07:24)
[2018-05-31] MEDS ORDERED: Dexmedetomidine Inj 200 MCG/2 ML Vial IV.CONT ONE (07:24)
[2018-05-31] MEDS ORDERED: Esmolol Bolus Inj 100 MG/10 ML Vial IV.PUSH ONE (07:24)
[2018-05-31] MEDS ORDERED: Phenylephrine/NS 1000 MCG/10ML Syringe IV.PUSH ONE (07:24)
[2018-05-31] MEDS ORDERED: Heparin - SQ 10,000 UNITS/ML Vial OTHER ONE (07:24)
[2018-05-31] MEDS ORDERED: Lidocaine PF 1% Inj 5 ML Syringe OTHER ONE (07:24)
[2018-05-31] MEDS ORDERED: Sodium Chlor 0.9% Inj 250 ML IV.CONT ONE (07:24)
[2018-05-31] MEDS ORDERED: fentaNYL Citrate Inj 100 MCG/2 ML Ampul IV.PUSH PRN (11:59)
[2018-05-31] MEDS ORDERED: Dextrose 50% in Water 50 ML Vial IV.PUSH PRN (11:59)
[2018-05-31] MEDS ORDERED: Potassium Chlor 20 mEq Premix 20 MEQ/100 ML PIGGYBACK IV.SIG PRN ×3 (11:59)
[2018-05-31] MEDS ORDERED: Insulin Regular (For Infusion) 100 UNIT in Sodium Chlor 0.9% Inj 99 ML IV.CONT PRN (11:59)
[2018-05-31] MEDS ORDERED: Metoprolol Inj 5 MG/5 ML Vial IV.PUSH PRN (11:59)
[2018-05-31] MEDS ORDERED: Magnesium Sulfate Inj 2 GM in Sodium Chlor 0.9% Inj 96 ML IV.SIG PRN ×4 (11:59)
[2018-05-31] MEDS ORDERED: Post-op Orders (for Pharmacy) OTHER STA (11:59)
[2018-05-31] MEDS ORDERED: Morphine Sulfate Inj 2 MG/ML Vial IV.PUSH PRN (11:59)
[2018-05-31] MEDS ORDERED: Phenylephrine Inj 40 MG in Sodium Chlor 0.9% Inj 496 ML IV.CONT PRN (11:59)
[2018-05-31] MEDS ORDERED: RESP: Racemic Epinephrine 2.25% 0.5 ML Neb NEB PRN (11:59)
[2018-05-31] MEDS ORDERED: Calcium Chloride Inj 1 GM/10 ML Syringe IV.PUSH PRN (11:59)
[2018-05-31] MEDS ORDERED: ceFAZolin Inj 2,000 MG in Sodium Chlor 0.9% Inj 80 ML IV.SIG SCH (12:00)
--- NOTE | 2018-05-31 12:11 | P.OP ---
Date of procedure: 05/31/18 Anesthesia: GETA Surgeon: Gordy Gomez MD Operation and Findings: PREPROCEDURE DIAGNOSES 1. Severe Multi Vessel Coronary Artery Disease. 2. Myocardial Infarction (NSTEMI) 3. Moderate to Severe Left Ventricular Dysfunction 4. Chronic nicotine use POSTPROCEDURE DIAGNOSES Same SURGICAL PROCEDURE 1. Urgent Off-pump Coronary Artery Bypass Grafting x 2 with Left Internal Mammary Artery (MONTERROSO) to Left Anterior Descending (LAD), reverse saphenous vein graft to obtuse Marginal branch of the left Circumflex artery 2. Left leg Endoscopic Vein [place] 3. Intraoperative Vein Mapping. SURGEON Gordy Gomez MD DUPLICATOR PUNCH OPERATOR Shana Shelton, REPRESENTATIVE GOVERNMENT RELATIONS FA ANESTHESIA General endotracheal MAKEUP ARTISTRY INSTRUCTOR YOANA Bedolla MD PREPARATION ChloraPrep. COUNTS Needle, sponge, and instrument counts were correct. DRAINS Two 32-Norwegian mediastinal tubes. COMPLICATIONS None. INDICATIONS FOR PROCEDURE The patient is a 57-year-old presenting with chest pain and acute IL. Patient was noted to have multi vessel coronary artery disease. The patient is being brought to the operating room for surgical revascularization therapy. PROCEDURE Patient was brought to the operating room and placed supine on the OR table. Following the induction of adequate general endotracheal anesthesia and placement of appropriate monitoring devices, intraoperative vein mapping was performed which revealed good-caliber conduit in bilateral lower extremities. The patient was then prepped and draped in standard sterile fashion. Next, 2500 units of intravenous heparin was given. The left greater saphenous vein was harvested endoscopically. This appeared to be a useable-caliber conduit. Simultaneously, a median sternotomy was performed and the left internal mammary artery dissected free off the posterior sternal table. The patient was systemically heparinized and anticoagulation monitored by serial ACT measurements. The internal mammary artery had excellent pulsatile flow in it and was a good-caliber conduit. The pericardium was then divided in the midline , the cradle created and targets analyzed. Of note, he had severe left ventricular dysfunction with global hypokinesis and inferior akinesis. Also the posterior wall appeared to be infarcted with evidence of transmural myocardial infarction and scarring. At this point, all anastomoses were performed in a beating-heart fashion using the Microland stabilizing system. The left internal mammary artery was anastomosed to the distal LAD (1.75 mm) in an end-to-side fashion using 7-0 Prolene. Segment of saphenous vein graft was then anastomosed to the OM1 (1.5 mm) in an end-to-side fashion using 7-0 Prolene. The posterior circulation was explored extensively and no viable targets were identified. Again, there was extensive scarring and evidence of transmural infarction of the posterior wall. The proximal anastomosis was then constructed to the ascending aorta in a running manner using 6-0 Prolene. All anastomotic sites were inspected and appeared to be hemostatic and patent. Protamine solution was given. Strict hemostasis was assured. The closure was undertaken. 2 chest tubes were placed. The pericardium was reapproximated in the midline. The sternum was approximated using sternal wires. The muscular and fascial layer were then closed in 3 layers. The endoscopic vein harvest site was closed in 2 layers. The patient tolerated the procedure well and was transferred to CVICU in stable condition.
[2018-05-31] MEDS ORDERED: Potassium Chlor 20 mEq Premix 20 MEQ/100 ML PIGGYBACK IV.SIG ONE (12:30)
[2018-05-31] MEDS ORDERED: fentaNYL Citrate Inj 250 MCG/5 ML Ampul ONE ×2 (12:33)
[2018-05-31] MEDS ORDERED: Dexmedetomidine Inj 200 MCG/2 ML Vial IV.PUSH ONE (13:00)
[2018-05-31] MEDS: Calcium Chloride Inj 1 GM in Sodium Chlor 0.9% Inj 100 ML IV.SIG PRN ×2 (13:14→17:19)
--- NOTE | 2018-05-31 13:51 | XR ---
EXAM DATE: 05/31/2018 1:38 PM EST AGE/SEX: 57 years / Male INDICATIONS: Post op CABG. CLINICAL DATA: This is the patient's subsequent encounter. Patient reports that signs and symptoms h ave been present for 1 day and indicates a pain score of Nonresponsive. MEDICAL/SURGICAL HISTORY: Hypertension. . Cardiac cath. COMPARISON: [facility] [place]ST 2V PA&LAT, 05/30/2018. . FINDINGS: Left chest tube is in place. Mediastinal drainage tube is in place. NG tube is present with tip in the stomach. ET tube is present with tip overlapping approximately 5 above the anay. No definite pneumothorax is seen for technique. Right IJ line is present with tip overlapping the expected region of the SVC. Slight atelectasis in l eft upper lobe. CONCLUSION: Mild left upper lobe atelectasis. Electronically signed by: Lang De Jesus MD Board Certified Radiologist 05/31/2018 1:49 PM EST
[2018-05-31] MEDS: Albumin Human 5% Inj 250 ML IV.SIG PRN ×2 (14:03→20:27)
--- NOTE | 2018-05-31 14:43 | P.PNIM ---
Subjective Interval history: Patient to have CABG done today for severe coronary disease no active chest pain Physical Exam Vital signs: Vital Signs 05/30/18 15:00 05/30/18 16:00 05/30/18 17:00 Temperature 98.1 F Pulse Rate 87 91 H 95 H Respiratory Rate 18 Blood Pressure 107/55 L Pulse Oximetry 99 05/30/18 18:00 05/30/18 19:00 05/30/18 20:00 Temperature 98.9 F Pulse Rate 89 84 88 Respiratory Rate 16 Blood Pressure 114/58 L Pulse Oximetry 98 05/30/18 21:00 05/30/18 22:00 05/30/18 23:00 Temperature Pulse Rate 90 84 80 Respiratory Rate Blood Pressure Pulse Oximetry 05/31/18 00:00 05/31/18 01:00 05/31/18 02:00 Temperature 99 F Pulse Rate 89 80 81 Respiratory Rate 16 Blood Pressure 110/61 Pulse Oximetry 98 05/31/18 03:00 05/31/18 04:00 05/31/18 05:00 Temperature 98.1 F Pulse Rate 81 84 96 H Respiratory Rate 18 Blood Pressure 110/60 Pulse Oximetry 97 05/31/18 06:00 05/31/18 12:20 05/31/18 12:27 Temperature Pulse Rate 81 95 H Respiratory Rate 17 Blood Pressure Pulse Oximetry 95 05/31/18 14:25 Temperature Pulse Rate Respiratory Rate Blood Pressure Pulse Oximetry 97 Intake & Output 05/30/18 05/31/18 05/31/18 18:59 06:59 18:59 Intake Total 480 / 480 2110 / 2110 3800 / 3800 Output Total 1150 / 1150 1200 / 1200 500 / 500 Balance -670 / -670 910 / 910 3300 / 3300 Weight 71 kg Intake: IV 1150 / 1150 600 / 600 Heparin/D5W 25,000 U/250 mL 25, 150 / 150 000 unit In 250 ml @ Per Protocol IV.CONT TITRATE PRN Rx #:[id number] NS Inj 1,000 ML @ 75 mls/hr IV. 1000 / 1000 CONT .[id number] REVA Rx#: [id number] Ofirmev Inj 1,000 mg In 100 ml 100 / 100 @ 400 mls/hr IV.SIG Q6H REVA Rx# :[id number] LR 1000 mL Inj 500 ML @ 500 mls 500 / 500 /hr IV.SIG .Q1H PRN Rx#: [id number] Oral 480 / 480 960 / 960 Anesthesia Amount 3000 / 3000 Cell Saver Amount 200 / 200 Output: Urine 1150 / 1150 1200 / 1200 Urine Amount (Catheter) 500 / 500 Indwelling Temp Sensing 500 / 500 Catheter Other: # Voids 2 2 Date of Last Bowel Movement 05/29/18 05/29/18 cvs: s1/s2 resp: cta gi: soft, non tender, non distended, no guarding ext: no edema or calf tenderness Urinary Catheter Management Indwelling Temp Sensing Catheter: Cath placed during this visit: yes Reason for continuing: Hourly intake/output Insertion date: 05/31/18 Insertion time: 07:48 Results Labs CBC & Chem 7: 05/31/18 03:04 05/31/18 03:04 Imaging Imaging: Impressions Chest X-Ray 05/31/18 11:59 CONCLUSION: Mild left upper lobe atelectasis. Assessment and Plan Plan Patient is a very pleasant 57-year-old gentleman with no significant past medical cardiac history who presents with new onset chest pain found to have T wave inversions in the inferior leads with elevated troponin levels admitted for NSTEMI Cardiology: Non-ST elevation myocardial infarction Cardiology consulted and recommendations appreciated Continue beta-christina, aspirin, and statin therapy Oxygen supplemental as needed for shortness of breath Continue telemetry monitoring. EKG PRN for chest pain - scheduled for CABG - cath - severe CAD - CTS consulted - npo today - post-op recc to be appreciated by CT surgery Psychiatry: Smoking counselling provided on 05/29. CODE STATUS: Full code DVT prophylaxis: Heparin drip Diet: N.p.o. currently--> advance after surgery
[2018-05-31] MEDS: Ketorolac Inj 30 MG/ML (IVP) Vial IV.PUSH PRN (16:23)
[2018-05-31] MEDS: Sod Chloride 0.9% Inj 1,000 ML IV.CONT SCH (20:25)
[2018-05-31] MEDS: Amiodarone 200 MG Tablet PO SCH (20:27)
[2018-05-31] MEDS: ceFAZolin 2 GM Premix Inj 2 GM/50 ML PIGGYBACK IV.SIG SCH (20:30)
[2018-06-01] MEDS: Ketorolac Inj 30 MG/ML (IVP) Vial IV.PUSH PRN ×2 (01:45→18:00)
[2018-06-01] MEDS: ceFAZolin 2 GM Premix Inj 2 GM/50 ML PIGGYBACK IV.SIG SCH ×3 (04:07→20:14)
[2018-06-01 06:22] LABS: Hematocrit 30.2 % (39.0-51.0); Hemoglobin 10.3 gm/dL (13.0-17.0); Mean Corpuscular HGB Conc 34.2 % (32.0-36.0); Mean Corpuscular Volume 87.6 fL (80.0-100.0); Mean Platelet Volume 10.6 fL (7.0-11.0); Platelet Count 144 th/mm3 (150-450); Red Blood Count 3.44 mil/mm3 (4.50-5.90); Red Cell Distribution Width 13.1 % (11.6-17.2); White Blood Count 7.5 th/mm3 (4.0-11.0)
--- NOTE | 2018-06-01 06:24 | XR ---
EXAM DATE: 06/01/2018 5:39 AM EST AGE/SEX: 57 years / Male INDICATIONS: Post CABG. CLINICAL DATA: This is the patient's subsequent encounter. Patient reports that signs and symptoms h ave been present for 4 - 6 days and indicates a pain score of Nonresponsive. MEDICAL/SURGICAL HISTORY: Hypertension. CABG. Cardiac cath. COMPARISON: C, CHEST 1V SINGLE AP, 05/31/2018. . FINDINGS: There is been interval extubation. Nasogastric tube. Thoracostomy tubes remain in place. Right neck s ryan and central line are stable. Aeration is slightly worse with hazy basilar parenchymal opacities now obscuring the diaphragms. Cardiac contours are unchanged. CONCLUSION: Slight interval worsening in aeration post extubation Electronically signed by: Kush Edwards MD Board Certified Radiologist 06/01/2018 6:23 AM EST
[2018-06-01 06:57] LABS: Anion Gap 7 meq/L (5-15); Blood Urea Nitrogen 12 mg/dL (7-18); Carbon Dioxide 25.4 meq/L (21.0-32.0); Chloride 107 meq/L (98-107); Glomerular Filtration Rate Greater Than 89 mL/min (>89); Glucose,Random 96 mg/dL (74-106); Potassium 4.2 meq/L (3.5-5.1); Sodium 139 meq/L (136-145)
[2018-06-01] MEDS ORDERED: Bisacodyl 10 MG Supp RECTAL PRN (08:26)
[2018-06-01] MEDS ORDERED: Sod Phosphate/Sod Biphosphate (Adult) Enema 133 ML Bottle RECTAL PRN (08:26)
--- NOTE | 2018-06-01 08:26 | P.PNCV ---
- Note Subjective/Hospital Course: 05/31 SURGICAL PROCEDURE 1. Urgent Off-pump Coronary Artery Bypass Grafting x 2 with Left Internal Mammary Artery (OMNTERROSO) to Left Anterior Descending (LAD), reverse saphenous vein graft to obtuse Marginal branch of the left Circumflex artery 2. Left leg Endoscopic Vein [place] 3. Intraoperative Vein Mapping. 06/01 Doing well Hemodynamically and clinically stable Initiate beta-christina therapy Transfer CPCU Maintain chest tubes to drainage Objective: Vital Signs - 24 hr 05/31/18 12:19 05/31/18 12:20 05/31/18 12:27 Temperature 98.7 F Pulse Rate 95 H 95 H Respiratory Rate 14 17 Blood Pressure 93/60 L Pulse Oximetry 99 95 05/31/18 14:25 05/31/18 15:00 05/31/18 16:48 Temperature Pulse Rate 104 H 100 H Respiratory Rate 18 20 Blood Pressure Pulse Oximetry 97 97 98 05/31/18 18:00 05/31/18 20:00 05/31/18 21:30 Temperature 98.9 F Pulse Rate 100 H 98 H Respiratory Rate 18 16 Blood Pressure 94/53 L Pulse Oximetry 97 95 97 05/31/18 23:45 06/01/18 03:00 06/01/18 04:04 Temperature 99.1 F 99.4 F Pulse Rate 103 H 99 H 96 H Respiratory Rate 20 20 16 Blood Pressure Pulse Oximetry 97 96 06/01/18 04:08 06/01/18 07:00 06/01/18 07:52 Temperature 98.1 F Pulse Rate 99 H Respiratory Rate 16 20 20 Blood Pressure 113/66 Pulse Oximetry 96 Labs: Laboratory Results - last 12 hr 05/30/18 05/31/18 05/31/18 15:13 20:46 22:05 WBC RBC Hgb Hct MCV MCH MCHC RDW Plt Count MPV Sodium Potassium Chloride Carbon Dioxide Anion Gap BUN Creatinine Estimated GFR POC Glucose 51 L 118 H Random Glucose Calcium Magnesium Blood Type O Positive Blood Type Recheck Required Antibody Screen Negative MTS Gel Crossmatch See Detail 05/31/18 06/01/18 06/01/18 23:43 02:29 04:58 WBC RBC Hgb Hct MCV MCH MCHC RDW Plt Count MPV Sodium Potassium Chloride Carbon Dioxide Anion Gap BUN Creatinine Estimated GFR POC Glucose 102 102 106 Random Glucose Calcium Magnesium Blood Type Blood Type Recheck Antibody Screen MTS Gel Crossmatch 06/01/18 06/01/18 05:50 05:50 WBC 7.5 RBC 3.44 L Hgb 10.3 L Hct 30.2 L MCV 87.6 MCH 30.0 MCHC 34.2 RDW 13.1 Plt Count 144 L MPV 10.6 Sodium 139 Potassium 4.2 Chloride 107 Carbon Dioxide 25.4 Anion Gap 7 BUN 12 Creatinine 0.75 Estimated GFR Greater than 89 POC Glucose Random Glucose 96 Calcium 8.0 L D Magnesium 2.0 Blood Type Blood Type Recheck Antibody Screen MTS Gel Crossmatch Result Diagrams: 06/01/18 05:50 06/01/18 05:50
[2018-06-01] MEDS: Metoprolol Tartrate 25 MG Tablet PO SCH ×2 (09:05→20:14)
[2018-06-01] MEDS: Amiodarone 200 MG Tablet PO SCH ×2 (09:05→20:14)
[2018-06-01] MEDS: Multivitamin/Minerals Therapeutic Tablet PO SCH (09:05)
[2018-06-01] MEDS: Morphine Inj 4 MG/ML Vial IV.PUSH PRN (12:56)
[2018-06-01] MEDS: Sod Chloride 0.9% Inj 1,000 ML IV.CONT SCH ×2 (16:29→20:15)
[2018-06-01] MEDS: Insulin NovoLOG Aspart Correctional Sugar Inj SQ SCH ×3 (16:30→21:24)
--- NOTE | 2018-06-01 20:06 | ECG ---
Date Performed: 06/01/2018 Time Performed: 07:21:32 PTAGE: 57 years EKG: Sinus tachycardia Inferior infarct - age undetermined Anterolateral ST-T changes may be due to myocardial ischemia Abnormal ECG NO PREVIOUS TRACING DOCTOR: Adelso Zambrano Interpretating Date/Time 06/01/2018 20:05:52
[2018-06-01] MEDS: Docusate Sodium 100 MG Capsule PO SCH (20:14)
[2018-06-01] MEDS: Temazepam 15 MG Capsule PO PRN (20:14)
[2018-06-02] MEDS: Insulin NovoLOG Aspart Correctional Sugar Inj SQ SCH ×5 (02:45→22:23)
[2018-06-02] MEDS: ceFAZolin 2 GM Premix Inj 2 GM/50 ML PIGGYBACK IV.SIG SCH (03:33)
[2018-06-02 05:11] LABS: Baso % (Auto) 0.3 % (0.0-2.0); Eos # (Auto) 0.1 th/mm3 (0.0-0.4); Eos % (Auto) 0.7 % (0.0-4.0); Hematocrit 29.8 % (39.0-51.0); Hemoglobin 10.2 gm/dL (13.0-17.0); Lymph # (Auto) 1.1 th/mm3 (1.0-4.8); Lymph % (Auto) 13.3 % (9.0-44.0); Mean Corpuscular HGB Conc 34.3 % (32.0-36.0); Mean Corpuscular Hemoglobin 29.9 pg (27.0-34.0); Mean Corpuscular Volume 87.2 fL (80.0-100.0); Mean Platelet Volume 10.8 fL (7.0-11.0); Mono # (Auto) 0.9 th/mm3 (0.0-0.9); Mono % (Auto) 10.8 % (0.0-8.0); Neut # (Auto) 6.5 th/mm3 (1.8-7.7); Neut % (Auto) 74.9 % (16.0-70.0); Platelet Count 153 th/mm3 (150-450); Red Blood Count 3.42 mil/mm3 (4.50-5.90); Red Cell Distribution Width 12.9 % (11.6-17.2); White Blood Count 8.6 th/mm3 (4.0-11.0)
[2018-06-02 05:30] LABS: Anion Gap 9 meq/L (5-15); Blood Urea Nitrogen 14 mg/dL (7-18); Calcium 7.9 mg/dL (8.5-10.1); Carbon Dioxide 25.1 meq/L (21.0-32.0); Chloride 102 meq/L (98-107); Glomerular Filtration Rate Greater Than 89 mL/min (>89); Glucose,Random 101 mg/dL (74-106); Magnesium 2.1 mg/dL (1.5-2.5); Potassium 3.9 meq/L (3.5-5.1); Sodium 136 meq/L (136-145)
[2018-06-02] MEDS: Ketorolac Inj 30 MG/ML (IVP) Vial IV.PUSH PRN (05:57)
[2018-06-02] MEDS: Polyethylene Glycol 3350 17 GM Packet PO SCH (09:01)
[2018-06-02] MEDS: Multivitamin/Minerals Therapeutic Tablet PO SCH (09:02)
[2018-06-02] MEDS: Docusate Sodium 100 MG Capsule PO SCH ×2 (09:02→20:51)
[2018-06-02] MEDS: Metoprolol Tartrate 25 MG Tablet PO SCH ×2 (09:02→20:51)
[2018-06-02] MEDS: Amiodarone 200 MG Tablet PO SCH ×2 (09:03→20:51)
[2018-06-02] MEDS: Sod Chloride 0.9% Inj 1,000 ML IV.CONT SCH ×2 (09:20→22:24)
--- NOTE | 2018-06-02 11:06 | P.PNCV ---
- Note Subjective/Hospital Course: 05/31 SURGICAL PROCEDURE 1. Urgent Off-pump Coronary Artery Bypass Grafting x 2 with Left Internal Mammary Artery (MONTERROSO) to Left Anterior Descending (LAD), reverse saphenous vein graft to obtuse Marginal branch of the left Circumflex artery 2. Left leg Endoscopic Vein [place] 3. Intraoperative Vein Mapping. 06/01 Doing well Hemodynamically and clinically stable Initiate beta-christina therapy Transfer CPCU Maintain chest tubes to drainage 06/02 chest tube removed without difficulty on room air ASA, statin , BB Objective: Vital Signs - 24 hr 06/01/18 12:00 06/01/18 13:00 06/01/18 14:00 Temperature Pulse Rate 96 H 98 H 94 H Respiratory Rate Blood Pressure Pulse Oximetry 06/01/18 15:00 06/01/18 15:10 06/01/18 16:00 Temperature 98.4 F Pulse Rate 96 H 86 88 Respiratory Rate 18 18 Blood Pressure 121/65 Pulse Oximetry 97 93 L 06/01/18 17:00 06/01/18 17:30 06/01/18 18:00 Temperature Pulse Rate 86 86 Respiratory Rate 4 L Blood Pressure Pulse Oximetry 06/01/18 19:00 06/01/18 21:02 06/01/18 23:00 Temperature 98 F 98.0 F Pulse Rate 90 89 83 Respiratory Rate 20 22 20 Blood Pressure 120/58 L 105/58 L Pulse Oximetry 95 91 L 94 L 06/02/18 00:00 06/02/18 01:00 06/02/18 02:00 Temperature Pulse Rate 82 84 88 Respiratory Rate Blood Pressure Pulse Oximetry 06/02/18 03:00 06/02/18 04:00 06/02/18 05:00 Temperature 98.2 F Pulse Rate 93 H 92 H 90 Respiratory Rate 20 Blood Pressure 124/62 Pulse Oximetry 93 L 06/02/18 06:00 06/02/18 07:00 06/02/18 08:00 Temperature 98.1 F Pulse Rate 86 88 87 Respiratory Rate 18 Blood Pressure 105/56 L Pulse Oximetry 96 06/02/18 08:19 06/02/18 09:00 Temperature Pulse Rate 88 84 Respiratory Rate 15 Blood Pressure Pulse Oximetry GENERAL: A&O x 3 SKIN: Warm and dry. prevena dressing to chest , incision intact to left leg HEAD: Normocephalic. EYES: No scleral icterus. No injection or drainage. NECK: Supple, trachea midline. No JVD or lymphadenopathy. CARDIOVASCULAR: Regular rate and rhythm without murmurs, gallops, or rubs. RESPIRATORY: Breath sounds equal bilaterally. No accessory muscle use. GASTROINTESTINAL: Abdomen soft, non-tender, nondistended. MUSCULOSKELETAL: No cyanosis, or edema. BACK: Nontender without obvious deformity. No CVA tenderness. Labs: Laboratory Results - last 12 hr 05/30/18 06/02/18 06/02/18 15:13 03:26 04:30 WBC 8.6 RBC 3.42 L Hgb 10.2 L Hct 29.8 L MCV 87.2 MCH 29.9 MCHC 34.3 RDW 12.9 Plt Count 153 MPV 10.8 Neut % (Auto) 74.9 H Lymph % (Auto) 13.3 [place] % (Auto) 10.8 H Eos % (Auto) 0.7 Baso % (Auto) 0.3 Neut # (Auto) 6.5 Lymph # (Auto) 1.1 [place] # (Auto) 0.9 Eos # (Auto) 0.1 Baso # (Auto) 0.0 WBC Differential . Differential Comment Auto diff final Sodium Potassium Chloride Carbon Dioxide Anion Gap BUN Creatinine Estimated GFR POC Glucose 104 Random Glucose Calcium Magnesium MTS Gel Crossmatch See Detail 06/02/18 06/02/18 04:30 06:00 WBC RBC Hgb Hct MCV MCH MCHC RDW Plt Count MPV Neut % (Auto) Lymph % (Auto) [place] % (Auto) Eos % (Auto) Baso % (Auto) Neut # (Auto) Lymph # (Auto) [place] # (Auto) Eos # (Auto) Baso # (Auto) WBC Differential Differential Comment Sodium 136 Potassium 3.9 Chloride 102 Carbon Dioxide 25.1 Anion Gap 9 BUN 14 Creatinine 0.87 Estimated GFR Greater than 89 POC Glucose 113 H Random Glucose 101 Calcium 7.9 L Magnesium 2.1 MTS Gel Crossmatch Result Diagrams: 06/02/18 04:30 06/02/18 04:30 Cardiovascular: NSR - Plan (1) S/P CABG x 2 Plan: Neuro: stable CV: NSR on ASA, statin BB Resp: nebs ezpap acapella GI : PPI motility meds Endo: sliding scale PT/ OOB HHC at discharge
--- NOTE | 2018-06-02 11:09 | P.DCO ---
- Diagnosis (1) Non-ST elevation IL (NSTEMI) Status: Acute (2) S/P CABG x 2 Status: Acute - Home Health Nursing Order: Medical education, Signs/symptoms of disease process, Wound care and dressing changes, Nursing assessment with vital signs Instructions: PREVENA Single Use Negative Wound Therapy System Caregiver Instruction Sheet 1. A Prevena dressing system was applied to the chest incision during surgery , to promote wound healing. It works via a suction device (negative pressure wound therapy) to remove low to moderate levels of exudate (drainage) and infectious materials. We recommend that the device stay in place for up to seven days, from day of surgery. 2. Day of Surgery___2/04/06 Day of Removal ____/ 3. The dressing should only be removed by a health direct care counselor. Please arrange removal of device to coincide with Home Health visit and or with Nursing staff at Rehab 4. If skin reddening or irritation of skin occurs, or excessive drainage, please notify the Cardiovascular Surgeons office at [phone]. 5. Light showering is permissible; however the pump should be disconnected and placed in safe location, where it will not get wet. The dressing should not be exposed to direct spray or submerged in water. No bath tub / shower only. Ensure the end of the tubing attached to the dressing is facing down so that water does not enter the top of the tube. 6. To remove Prevena dressing: press purple button to turn off device / remove the suction. Then disconnect the tubing from the pump. The fixation strips should be stretched away from the skin and the dressing lifted at one corner and peeled back until it has been fully removed. 7. After removal, it is ok to shower daily using liquid dial soap and clean wash cloth, rinse and pat dry, and leave incision open to air dry. For any concerns regarding Prevena dressing, and or wounds, please contact Monica Quinonez patient navigator at [phone] or notify the Cardiovascular Surgeons office at [phone]. Incentive spirometry Q1 hr x 10, while awake, also use acapella device hourly whole awake Sternal Breast Bone Precautions: NO pushing or pulling, ( pt must use sternal pillow to support chest with all activities and with coughing ( takes up to 3 months breast bone to heal ) Daily incision care: ok to shower daily, no tub bath. Wash all incisions with liquid dial soap, clean wash cloth to each site, rinse and pat dry. Observe for any signs of infection, such as drainage which is dark yellow, carlton, green or foul smelling. Immediately report to the surgeon any drainage from the chest incision, or legs, and for any abnormal drainage from the chest tube sites. Notify surgeon if any temp >101.5 degrees F. When specialty dressing removed/ or if you do not have one, continue to shower daily as above, then rinse and pat incision dry and paint with betadine daily x 5 days. Allow steri strips to fall off if you have any. Avoid lotions, creams, salves, oils, etc. for the first month Please see attached forms for additional instructions regarding post Open Heart specialty wound vacuum dressings. FILI or Prevena , Dressing to be removed by Nursing staff on __/ F/U appointment: as per [place] instructions: PCP in 2 weeks, CV surgeon 2 weeks, Wet Machine Cutter 3-4 weeks For any questions regarding incisions/ dressing / meds / post op care or above Symptoms, Wednesday 8am-5pm Heart & Vascular Surgery Office ( Dr. Gomez & Dr. Lopez), After Hours / Nights (5pm -8am) Weekends and Holidays Please call [facility] Cardiac Intermediate Care Unit (CIC) Charge Nurse Heart and Vascular Surgery patients *Special attention to sternal dressing Mandatory frequency Assess and evaluation, 4 days in a row The next week 3X week 2 times a week for 4 weeks 1 time a week for 5 weeks Schedule Heart and Vascular patients for full 60 day certification period Initial visit Review Open Heart Surgery Discharge Instructions (Sternal precautions, Activity, Elastic hose, Incision care, Driving, Incentive spirometry, Smoking, [place], Work and other) Need Betadine to paint incision Medication reconciliation Importance of follow up care/ check on appointments Make calendar record temperature daily When to call [facility] at Home nurse, review instructions, phone list Incentive Spirometry, demonstration Visit 1- Begin discharge instruction for patient family and/ or caregiver using teach back method- Signs and symptoms of infection Disease characteristics Medicines and side effects Foods and nutrition/ appetite Infection control/ hand washing/ hygiene Visit 2- Continue teaching Discharge instructions- include additional information on smoking cessation , sternal dressing (sternal vac) Visit 3- Continue teaching- Cough and deep breathing, incision monitoring. Choose my plate Visit 4- Continue teaching- Discuss limitations Discuss how they are feeling Discuss progress toward goals Remaining visits- continue teaching and monitoring For any questions please call : Wednesday 8am-5pm Heart & Vascular Surgery Office ( Dr. Gomez & Dr. Lopez), After Hours / Nights (5pm -8am) Weekends and Holidays Please call [facility] Cardiac Intermediate Care Unit (CIC) Charge Nurse - Case Management Consult Case Management Consult-Home Health: Yes - Certification I have seen patient Donovan Zamorano on 06/02/18. My clinical findings support the need for the requested home health care services because: Deconditioned with increased weakness I certify that my clinical findings support that this patient is homebound because: Post-op weakness
--- NOTE | 2018-06-03 06:28 | XR ---
EXAM DATE: 06/03/2018 6:25 AM EST AGE/SEX: 57 years / Male INDICATIONS: Chest tube removal. CLINICAL DATA: This is the patient's subsequent encounter. Patient reports that signs and symptoms h ave been present for 4 - 6 days and indicates a pain score of 0/10. MEDICAL/SURGICAL HISTORY: . Hypertension. CABG. Cardiac cath. COMPARISON: C, CHEST 1V SINGLE AP, 06/01/2018. . FINDINGS: Right neck central line remains in place. Chest tubes been removed. No pneumothorax. Hazy bilateral p leural parenchymal opacity persists. Cardiac contours are unchanged. CONCLUSION: Thoracostomy tube removal without complication. Electronically signed by: Kush Edwards MD Board Certified Radiologist 06/03/2018 6:27 AM EST
[2018-06-03] MEDS: Insulin NovoLOG Aspart Correctional Sugar Inj SQ SCH ×4 (08:00→22:34)
[2018-06-03] MEDS: Amiodarone 200 MG Tablet PO SCH ×2 (08:19→20:53)
[2018-06-03] MEDS: Metoprolol Tartrate 25 MG Tablet PO SCH ×2 (08:19→20:53)
[2018-06-03] MEDS: Docusate Sodium 100 MG Capsule PO SCH ×2 (08:19→20:53)
[2018-06-03] MEDS: Multivitamin/Minerals Therapeutic Tablet PO SCH (08:19)
[2018-06-03] MEDS: Polyethylene Glycol 3350 17 GM Packet PO SCH (08:19)
--- NOTE | 2018-06-03 11:37 | P.PNCV ---
- Note CVT: Post Op Day #: 3 Subjective/Hospital Course: 05/31 SURGICAL PROCEDURE 1. Urgent Off-pump Coronary Artery Bypass Grafting x 2 with Left Internal Mammary Artery (MONTERROSO) to Left Anterior Descending (LAD), reverse saphenous vein graft to obtuse Marginal branch of the left Circumflex artery 2. Left leg Endoscopic Vein [place] 3. Intraoperative Vein Mapping. 06/01 Doing well Hemodynamically and clinically stable Initiate beta-christina therapy Transfer [facility]PCU Maintain chest tubes to drainage 06/02 chest tube removed without difficulty on room air ASA, statin , BB 06/03/18 doing well, no complaints Objective: Vital Signs - 24 hr 06/02/18 12:00 06/02/18 13:00 06/02/18 13:15 Temperature Pulse Rate 82 84 80 Respiratory Rate 16 Blood Pressure Pulse Oximetry 06/02/18 14:00 06/02/18 15:00 06/02/18 16:00 Temperature 98.5 F Pulse Rate 86 89 86 Respiratory Rate 18 Blood Pressure 108/62 Pulse Oximetry 95 06/02/18 16:48 06/02/18 17:00 06/02/18 17:01 Temperature Pulse Rate 87 88 Respiratory Rate 16 Blood Pressure Pulse Oximetry 96 06/02/18 18:00 06/02/18 19:00 06/02/18 20:00 Temperature 98.4 F Pulse Rate 84 93 H 82 Respiratory Rate 20 Blood Pressure 123/63 Pulse Oximetry 94 L 06/02/18 20:59 06/02/18 21:00 06/02/18 22:00 Temperature Pulse Rate 90 94 H 94 H Respiratory Rate 18 Blood Pressure Pulse Oximetry 93 L 06/02/18 23:00 06/03/18 00:00 06/03/18 01:00 Temperature 98.6 F Pulse Rate 91 H 84 84 Respiratory Rate 18 Blood Pressure 128/71 Pulse Oximetry 94 L 06/03/18 02:00 06/03/18 03:00 06/03/18 04:00 Temperature 97.9 F Pulse Rate 82 86 86 Respiratory Rate 22 Blood Pressure 129/69 Pulse Oximetry 96 06/03/18 05:00 06/03/18 05:58 06/03/18 07:00 Temperature 97.4 F L Pulse Rate 84 79 85 Respiratory Rate 18 Blood Pressure 126/71 Pulse Oximetry 98 06/03/18 08:00 06/03/18 08:32 06/03/18 09:00 Temperature Pulse Rate 82 96 H 86 Respiratory Rate 18 Blood Pressure Pulse Oximetry 93 L 06/03/18 10:00 Temperature Pulse Rate 82 Respiratory Rate Blood Pressure Pulse Oximetry Labs: Laboratory Results - last 12 hr 06/03/18 08:17 POC Glucose 153 H Result Diagrams: 06/02/18 04:30 06/02/18 04:30 Imaging: Carotid Doppler Study 05/30/18 11:16 CONCLUSION: Negative for hemodynamically significant stenosis Lower Extremity Ultrasound 05/30/18 11:16 CONCLUSION: 1. Venous mapping as above Venous Doppler Study 05/30/18 11:16 CONCLUSION: 1. Negative for deep venous thrombosis Chest X-Ray 06/03/18 06:00 CONCLUSION: Thoracostomy tube removal without complication. Cardiovascular: RRR Pulmonary: CTA GI/: NABS, NT Incision: dry and intact - Plan (2) S/P CABG x 2 Plan: Neuro: stable CV: NSR on ASA, statin BB Resp: nebs ezpap acapella GI : PPI motility meds Endo: sliding scale PT/ OOB HHC at discharge Encourage ambulation Stim BM Plan for DC tomorrow
[2018-06-03] MEDS: Sod Chloride 0.9% Inj 1,000 ML IV.CONT SCH (15:09)
[2018-06-04] MEDS: Docusate Sodium 100 MG Capsule PO SCH (08:29)
[2018-06-04] MEDS: Insulin NovoLOG Aspart Correctional Sugar Inj SQ SCH (08:29)
[2018-06-04] MEDS: Multivitamin/Minerals Therapeutic Tablet PO SCH (08:29)
[2018-06-04] MEDS: Amiodarone 200 MG Tablet PO SCH (08:29)
[2018-06-04] MEDS: Metoprolol Tartrate 25 MG Tablet PO SCH (08:29)
[2018-06-04] MEDS: Polyethylene Glycol 3350 17 GM Packet PO SCH (08:30)
--- NOTE | 2018-06-04 12:21 | P.DS ---
Date of admission: 05/28/18 08:43 Primary care physician: No Primary Care Physician Attending physician on discharge: Gordy Gomez Anticipated date of discharge: 06/04/18 Brief History from admission: Mr. Kolb is a 57 year old male. He has no past medical history and has not seen any medical provider for years. He came into the emergency department complaining of a tight pressure-like chest pain which sometimes rated up to his shoulders and back. He reports that he still having intermittent mild episodes of this in the preceding today he has had some of these episodes previously. What prompted him to come in was that last night he had a severe episode like this which is beyond his normal baseline. The severity of that episode has subsided. Troponins are showing positivity on first lab draw. ST segment changes are present. However, symptoms have improved. He is a smoker and has been trying to cut back smoking for the last week. He has a history of coronary artery disease in his father and sister. No other complaints at this time. Patient update on day of discharge: Doing well today. Uneventful postop course. DS: Diagnosis - Discharge Diagnosis (1) Non-ST elevation IA (NSTEMI) Status: Acute (2) S/P CABG x 2 Status: Acute Diagnosis: Principal (3) CAD (coronary artery disease) Status: Acute Diagnosis: Principal (4) HTN (hypertension) Status: Acute Diagnosis: Secondary DS: Medications - Discharge Medications Prescriptions: hydrocodone-acetaminophen 1 tab PO Q3H PRN #30 tab PRN Reason: Pain Scale 1 To 5 DS: Summary Hospital Course: Patient presented with chest pain and ruled-in for NSTEMI. He underwent left heart catheterization and was found to have multivessel CAD. 05/31 SURGICAL PROCEDURE 1. Urgent Off-pump Coronary Artery Bypass Grafting x 2 with Left Internal Mammary Artery (MONTERROSO) to Left Anterior Descending (LAD), reverse saphenous vein graft to obtuse Marginal branch of the left Circumflex artery 2. Left leg Endoscopic Vein [place] 3. Intraoperative Vein Mapping. 06/01 Doing well Hemodynamically and clinically stable Initiate beta-christina therapy Transfer CPCU Maintain chest tubes to drainage 06/02 chest tube removed without difficulty on room air ASA, statin , BB 06/03/18 doing well, no complaints - Time Spent with Patient Total time spent providing and/or coordinating discharge services: Greater than 30 minutes - Quality: AMI Clinical Trial Participant: No - Quality: VTE Deep Vein Thrombosis/Pulmonary Embolism Present on Admission: No Exam Vital signs: Vital Signs 06/03/18 13:00 06/03/18 13:22 06/03/18 14:00 Temperature Pulse Rate 84 84 Respiratory Rate Blood Pressure Pulse Oximetry 92 L 06/03/18 15:00 06/03/18 16:00 06/03/18 16:07 Temperature 97.8 F Pulse Rate 81 82 Respiratory Rate 20 Blood Pressure 108/61 Pulse Oximetry 96 96 06/03/18 17:34 06/03/18 18:20 06/03/18 19:00 Temperature 98.2 F Pulse Rate 87 80 87 Respiratory Rate 18 Blood Pressure 125/68 Pulse Oximetry 93 L 06/03/18 20:00 06/03/18 20:26 06/03/18 21:00 Temperature Pulse Rate 86 82 Respiratory Rate Blood Pressure Pulse Oximetry 93 L 06/03/18 22:00 06/03/18 23:00 06/04/18 00:00 Temperature 98.8 F Pulse Rate 76 75 74 Respiratory Rate 16 Blood Pressure 110/60 Pulse Oximetry 96 06/04/18 00:30 06/04/18 01:00 06/04/18 02:00 Temperature Pulse Rate 76 76 Respiratory Rate 18 Blood Pressure Pulse Oximetry 06/04/18 03:00 06/04/18 04:00 06/04/18 05:00 Temperature 97.7 F Pulse Rate 81 77 75 Respiratory Rate 16 Blood Pressure 113/62 Pulse Oximetry 96 06/04/18 06:00 06/04/18 07:00 06/04/18 08:00 Temperature 98.0 F Pulse Rate 76 86 82 Respiratory Rate 18 Blood Pressure 123/66 Pulse Oximetry 95 06/04/18 09:00 06/04/18 10:00 06/04/18 11:00 Temperature Pulse Rate 88 76 76 Respiratory Rate Blood Pressure Pulse Oximetry Intake & Output 06/03/18 06/04/18 06/04/18 18:59 06:59 18:59 Intake Total 520 / 520 Output Total 850 / 850 Balance -330 / -330 Weight 72 kg Intake: Oral 520 / 520 Output: Urine 850 / 850 Other: # Voids 3 Date of Last Bowel Movement 06/03/18 06/03/18 06/03/18 # Bowel Movements 1 - Constitutional no acute distress - Routine HEENT Exam Head: Present: normocephalic, atraumatic Eye: Present: EOMI, PERRL, normal accommodation ENT: Present: mucous membranes moist - Routine Neck Exam Present: supple, full ROM - Routine Respiratory Exam Present: CTA bilaterally - Routine Cardiovascular Exam Present: RRR, S1, S2. Absent: murmur - Routine Abdominal Exam Present: soft, normoactive bowel sounds - Routine Extremities Exam Present: pulses intact. Absent: cyanosis, clubbing, edema - Routine Skin Exam Present: intact - Routine Neurological Exam Present: alert, oriented X3, CN II-XII intact Results Procedures completed during hospitalization: Left heart cath Echocardiogram CABG Labs on day of discharge: Labs from last 24 hours 06/04/18 06/04/18 06/03/18 12:11 08:26 20:51 POC Glucose 115 H 128 H 139 H 06/03/18 06/03/18 17:14 11:44 POC Glucose 119 H 104 - Impressions ITS Impressions Carotid Doppler Study 05/30/18 11:16 CONCLUSION: Negative for hemodynamically significant stenosis Lower Extremity Ultrasound 05/30/18 11:16 CONCLUSION: 1. Venous mapping as above Venous Doppler Study 05/30/18 11:16 CONCLUSION: 1. Negative for deep venous thrombosis Chest X-Ray 06/03/18 06:00 CONCLUSION: Thoracostomy tube removal without complication. Discharge Plan - Discharge Disposition Patient Disposition: W/Home Health Service - Discharge Condition Condition: Good - Discharge Order Discharge Orders: Discharge Order (Routine); Ordered 06/04/18 Ordered By: Estrella Lopez - Discharge Details Anticipated Discharge Date: 06/04/18 - Physicians Team Primary Care Provider: Primary Care Physici,Jo Ann Attending Provider: Gordy Gomez Other Providers: Frederick Coreas MD ; Gordy Gomez MD
== END 2018-06-04 18:00 | disposition home health service (06) | DRG 234 ==
LOC: PHED 06:24 → PHEDA 08:43 → PHEDH 12:45 → HCPC 15:22 → HCIS 05-31 09:19 → HCVI 05-31 13:19 → HCPC 06-01 09:14
PROVIDERS: ADMIT Thoracic Surgery (Cardiothoracic Vascular Surgery); ATTEND Thoracic Surgery (Cardiothoracic Vascular Surgery)
CPT/HCPCS: 36430; 71010; 71020; 71045; 71046; 76937; 80048; 80053; 80061; 80076; 80307; 81001; 82272; 82550; 82552; 82948; 82962; 83036; 83520; 83690; 83735; 83880; 84484; 85014; 85025; 85027; 85610; 85730; 86850; 86900; 86901; 86923; 87641; 93005; 93306; 93312; 93318; 93458; 93880; 93965; 93970; 93998; 94002; 94010; 94150; 94640; 94650; 94651; 94656; 94664; 94665; 97110; 97116; 97162; 97530; 99152; 99285; C1768; C1769; C1893; J0131; J0690; J1644; J1815; J1817; J1885; J2060; J2250; J2270; J2370; J2720; J3010; J3370; J3475; J3480; J7030; J7050; J7120; P9016; P9045; Q9967